=== PATIENT | female | born 1955 | race African-American/Black ===

== ENCOUNTER 2022-02-17 18:42 | Inpatient (IN) | payer OTHER ==
--- NOTE | 2022-02-17 14:32 | R.PREADM ---
PRE-ADMISSION SCREENING FORM SCREENING DATE AND TIME 02/17/2022 09:02 (CDT) ANTICIPATED REHAB ADMISSION DATE 02/17/2022 REFERRING FACILITY [facility] REFERRAL DATE AND TIME 02/14/2022 15:02 (CDT) REFERRAL ROOM# 222 ACUTE ADMIT DATE 02/13/2022 Previous Rehabilitation(s): No. 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 CLINICAL LIAISON Pau Osei PHYSICIAN REVIEWER Dr. Rell Hernandez M.D. MR# [id number] NAME MILY COLLINS ADDRESS [address] [facility] [address] DATE OF 1955 AGE 67 SSN# [id number] GENDER female MARITAL STATUS Single (Never ) PREF. LANGUAGE (IF NON-FRISIAN) Scottish ADMIT FROM 02 - [facility] PRE-HOSPITAL LIVING SETTING 01 - Home (private home/apt. board/care, assisted living, snf, transitional living) HOME TYPE AND DETAILS Type of home: single family house # of levels in the residence: 1 # of steps within the residence: 0 # of steps to enter the residence: 0 PRE-HOSPITAL LIVING WITH Family/Relatives FAMILY SUPPORT Yes PRIMARY FAMILY CONTACT NAME [place] PRIMARY FAMILY CONTACT PHONE PRIMARY FAMILY CONTACT RELATIONSHIP Brother PHONE PRIMARY FAMILY CONTACT ON ADM.? no IS PRIMARY FAMILY CONTACT AUTH. REP.? no 1ST EMERGENCY CONTACT [place] 1ST CONTACT PHONE 1ST CONTACT RELATIONSHIP Brother PHONE 1ST CONTACT ON ADM. no IS 1ST CONTACT AUTH. REP.? no PHONE 2ND CONTACT ON ADM.? no PATIENT EMPLOYMENT STATUS Retired (for age) PATIENT EMPLOYER No Employer PAYOR INFORMATION: 1ST PAYOR NAME [employer] [facility] [place] 1ST PAYOR PHONE [phone] 1ST PAYOR INJURY/ILLNESS DUE TO ACCIDENT? No ANOTHER REPUBLICAN RESPONSIBLE? No PRIMARY REHAB/ACUTE DIAGNOSIS: CVA ONSET DATE 02/13/2022 REHAB IMPAIRMENT CATEGORY (TRICIA): 01 Stroke (STR) MEETS 60% rule AFFECTED EXTREMITIES: RLE, and RUE PRIMARY DIAGNOSIS-RELATED SURGERIES: N/A INTERVENTIONS: - Diabetes Monitor blood glucose levels and administer medication as indicated by Physician Diet will be customized to manage diabetic needs. - HYPERTENSION Blood pressure will be regularly assessed and medications administered as per physician recommendatio ns. - CVA Monitor Neuro Signs regularly Provide aggressive OT, PT, and Speech services if warranted to address functional deficits RISK FOR COMPLICATIONS: - CVA pt's blood pressures have been inconsistent and require monitoring and medication management as inidi cated by physician. pt has history of CVA. Will monitor blood pressure and manage with medication. - Diabetic Complications Regular monitoring and management of blood glucose levels. pt will receive a specialized diet to help manage blood glucose levels - Skin Breakdown Nursing will assess skin daily using assessment tool and will place on Skin Breakdown Precautions as Indicated per protocol - Weakness Regular therapeutic activity and exercise Strengthening exercises to be performed - Falls Educated pt on fall prevention strategies to reduce/eliminate fall risk Patient will be evaluated for Fall Precautions and will be placed on Fall Precautions as indicated pe r protocol. - DVT Administer anti-coagulants as indicated by physician and monitor for effectiveness. Mobility training and regular exercise SUMMARY OF ACUTE HOSPITALIZATION: Pt. is a 67 yo Right-handed female. On 02/13/2022 Pt. presented to [facility] with sudden onset of right-side weakness. On 02/13/2022 she was admitted to [facility] with diagnosis CVA. Her impairment category is Stroke 01 - Right Body (Left Brain) (01.2). Pre-morbidly, Pt. was independent/mod-I in Locomotion, Safety Awareness, Social Cognition, Balance, a nd Transfers Control; and she had good Sphincter Control, Communication, Self-Care, and Endurance. Currently, she has deficits of Locomotion, Safety Awareness, Social Cognition, Balance, Transfers Con trol, Self-Care, Sphincter Control, Endurance, and Communication. Pt. is now referred to [facility] for acute in-patient rehabilitation in order to maximize patient's functional independence in activities of daily living, strength, ROM, and mobi lity. Patient has realistic goal of being discharged at assistance level 7-Ind to reside at Home with Fami ly/Relatives. PAST MEDICAL HISTORY BREAST CANCER DIABETES MELLITUS HYPERTENSION PAST SURGICAL HISTORY: CHOLECSTECTOMY HYSTERECTOMY LUMPECTOMY (OTHER) MEDICATION ALLERGIES: No Known Drug Allergies (NKDA) ENVIRONMENTAL ALLERGIES: - Substance Allergies None Known - Other Allergies None Known CODE STATUS: Full code WEIGHT/HEIGHT/BMI: WEIGHT 235 lbs HEIGHT 6' 2" BMI 30.2 DIET: - Diet Type Regular - Diet - Solid Texture Regular - Diet - Liquid Texture Regular - Tube Feed N/A SKIN DIAGRAM: on Head; extent - small; stage - NS(Not Stageable). Treatment - . REVIEW OF SYSTEMS: - Gen Alert and awake Lying in bed No apparent distress Oriented to: person, time, and place - Vital Signs Temperature: 98.4 F SBP/DBP: 146/78 Pulse: 63 Resp: 19 Vital signs stable, afebrile - CVS RRR VITAL SIGNS Temperature: 98.4 F SBP/DBP: 146/78 Pulse: 63 Resp: 19 Vital signs stable, afebrile MEDICATIONS/TREATMENT: Other- See attached MAR (Medication Administration Record). CURRENT SPHINCTER CONTROL: Pre-hospital bladder status: unspecified # of bladder accidents in the last 7 days prior to screenin Pre-hospital bowel status: unspecified # of bowel accidents in the last 7 days prior to screenin Last Bowel Movement Date: 02/14/2022 CURRENT LOCOMOTION STATUS: distance walked 20 feet WITH ROLLING WALKER DETAILED CURRENT FUNCTIONAL STATUS: - Bladder accident frequency: 7-Ind - No accidents in the past 7 days - Bowel accident frequency: 7-Ind - No accidents in the past 7 days - Walking score based on distance walked: 0(N/A) score based on distance walked: 1(<=50ft) - Wheelchair score based on distance traveled: 0(N/A) QI SCORES: - Self-Care A. Eating 03-Partial/moderate assistance B. Oral hygiene 03-Partial/moderate assistance C. Toileting hygiene 02-Substantial/maximal assistance E. Shower/bathe self 02-Substantial/maximal assistance F. Upper body dressing 03-Partial/moderate assistance G. Lower body dressing 02-Substantial/maximal assistance H. Putting on/taking off footwear 88-Not attempted due to medical condition or safety concerns - Mobility A. Roll left and right 04-Supervision or touching assistance B. Sit to lying 04-Supervision or touching assistance C. Lying to sitting on side of bed 04-Supervision or touching assistance D. Sit to stand 03-Partial/moderate assistance E. Chair/nec-fa-qefpo transfer 03-Partial/moderate assistance F. Toilet transfer 03-Partial/moderate assistance G. Car transfer 88-Not attempted due to medical condition or safety concerns I. Walk 10 feet 03-Partial/moderate assistance J. Walk 50 feet with two turns 88-Not attempted due to medical condition or safety concerns K. Walk 150 feet 88-Not attempted due to medical condition or safety concerns L. Walking 10 feet on uneven surfaces 88-Not attempted due to medical condition or safety concerns M. 1 step (curb) 88-Not attempted due to medical condition or safety concerns N. 4 steps 88-Not attempted due to medical condition or safety concerns O. 12 steps 88-Not attempted due to medical condition or safety concerns P. Picking up object 88-Not attempted due to medical condition or safety concerns R. Wheel 50 feet with two turns 88-Not attempted due to medical condition or safety concerns S. Wheel 150 feet 88-Not attempted due to medical condition or safety concerns - Bladder and Bowel Bladder continence Bowel continence - Endurance Fair - Balance Fair - Safety Awareness Fair CURRENT FUNC. DEFICITS: Self-Care, Mobility, Endurance, Balance, and Safety Awareness CURRENT / PREVIOUS ASSISTIVE DEVICES: Rolling Walker HISTORY OF FALLS. HAS THE PATIENT HAD TWO OR MORE FALLS IN THE PAST YEAR OR ANY FALL WITH INJURY IN T HE PAST YEAR?: No PRIOR SURGERY. DID THE PATIENT HAVE MAJOR SURGERY DURING THE 100 DAYS PRIOR TO ADMISSION?: No THERAPY NOTES FROM ACUTE CARE: Attached. SPECIAL NEEDS: - Safety Concerns Fall precautions needed due to Poor balance Skin breakdown precautions needed due to skin breakdown risk PRECAUTIONS: - Weight Bearing Precaution WBAT right LE - Fall Precaution Bed alarm TABS alarm Wheel chair alarm PATIENT NEEDS ACTIVE AND ONGOING THERAPEUTIC INTERVENTION OF MULTIPLE THERAPY DISCIPLINES, INCLUDING: - Dietary and Nutrition Adequate Nutrition. Nutritional Education. Nutritional Supplements. Evaluate and Treat. - Occupational Therapy Cognitive Retraining. Patient needs Occupational Therapy for a daily minimum of 1.5 hours at least 5 out of 7 days, to improve Activities of Daily Living, including: Eating, Grooming, Bathing, Dressing, Toileting, Toilet Transfers, Community Reintegration, Higher functional activities, Adaptive Equipme nt, Splinting, Household Tasks, and Other activities as determined. Visual Perceptual Training. Evalu ate and Treat. - Speech Therapy Cognitive Training. Expressive Language Skills. Memory Strategies. Patient needs Speech Therapy for a daily minimum of 1.5 hours at least 5 out of 7 days, to improve: Swallowing, Cognition, Language Ski lls, and Compensatory Strategies. Receptive Language Skills. Speech Intelligibility Training. Evaluat e and Treat. - Physical Therapy Patient needs Physical Therapy for a daily minimum of 1.5 hours at least 5 out of 7 days, to improve: Mobility, Strengthening, Transfers, Stretching, ROM, Endurance, Ability to manage stairs, Gait, and Balance. Balance Training. Evaluate and Treat. Mobility Training. Patient/Family Education. Safety Aw areness. Transfer Training. Modalities Training. Gait Training. PATIENT NEEDS CLOSE MEDICAL SUPERVISION BY A REHABILITATION PHYSICIAN FOR: Coordination of Treatment Team Wound Care PATIENT REQUIRES 24X7 REHAB NURSING FOR MEDICAL AND FUNCTIONAL MGT. OF THE FOLLOWING DEFICITS: Disease Management Medication Management Patient requires 24x7 Rehabilitation Nursing for: Pain Issues, Identifying and preventing risk factor s, Monitoring and reporting current medical conditions, Assisting with ambulation and transfer, Ruba ting with all ADL-s, Teaching patients about disease process and medications, Family teaching, Provid ing safe environment, Bowel and Bladder Issues, Skin Integrity, and Medication Management Patient/Family Education Providing Safe Environment Skin Integrity PATIENT REQUIRES INTENSIVE, COORDINATED INTERDISCIPLINARY APPROACH TO REHAB: Arranging Home Equipment/Services Discharge Planning Family Intervention/Training Patient needs Dietary and Nutrition Services for: Adequate Nutrition, Nutritional Supplements, and Nu tritional Education Patient needs Wrong Address Clerk and/or Case Management for: Discharge Planning, Arranging Home Equipmen t or Services, and Family Interventions Wrong Address Clerk/Case Management PATIENT REHAB POTENTIAL: Zack COLLINS is able and expected to receive 3 hours of individualized therapy daily on at least 5 of robinson ry 7 days Zack BARNETTs prognosis for significant practical improvement within a reasonable period of time appears Good Expected level of measurable improvement will be of a practical value to Zack COLLINS's functional capaci ty or adaptations to impairments Has a viable Discharge Plan Medically appropriate; condition is sufficiently stable to participate in intensive rehab program DISCHARGE PLAN: - Estimated Length of Stay (days) 17. - Consensus on plan Discharge plan has been discussed with primary caregiver. Patient/Family is in agreement with the sage n. Primary caregiver is in agreement with the plan. - Patient/Family Goals Return home independently. - Planned Living Setting Upon Discharge Home, to live with Family/Relatives. Transitional Living. RECOMMENDED CARE LEVEL: IRF RECOMMENDATION DETAILS: Recommended Admission to Comprehensive Rehabilitation Program to Increase Functional [place] SCREENER'S COMPLETENESS CONFIRMATION: - Screening Confirmation The patient data collection on this preadmission screening form is finished PHYSICIANS REVIEW AND ADMISSION DETERMINATION Admit - Based on my review of the Pre-Admission Screening results, in my medical judgment and experie nce, I concur with the findings and recommend admission to [facility], as this patient requires an IRF level of care. SIGNATURE PANEL: Process Safety Specialist - [electronically] signed by Pau Osei on 02/17/2022 at 10:46 (CDT) Process Safety Specialist - [electronically] signed by Tony Gutiérrez PT on 02/17/2022 at 12:00 (CDT) Physician Reviewer - [electronically] signed by Dr. Rell Hernandez M.D. on 02/17/2022 at 14:31 (CDT )
--- OUTSIDE RECORDS SUMMARY | 2022-02-17 18:46 | XMS REPORT | Continuity of Care Document ---
:1955 Author Organization [facility] t Address [address] [place] [address] Care Team Providers Name Role Phone Unavailable Unavailable Unavailable Problems This patient has no known problems. Allergies, Adverse Reactions, Alerts This patient has no known allergies or adverse reactions. Medications This patient has no known medications. Procedures This patient has no known procedures. Results Test Description Test Time Test Comments Results Result [facility] e Comments DIAG MAMM 2019-09-30 - DIAG MAMM BILATERAL BILATERAL FELIPE 10:18:19 FELIPE CAD CAD DIGITAL DIGITALBILATERAL DIGITAL DIAGNOSTIC MAMMOGRAM 3D/2D WITH CAD: 09/30/2019CLINICAL: History of breast cancer left breast. Digital breast tomosynthesis was performed in addition to routine CC and MLO views. Current mammographic images were evaluated by either a femeninas M-Vu or an iCAD version 7.2 computer aided detection system. Comparison is made to exams dated 08/10/2017 mammogram - [facility], [facility], and 06/25/2015 mammogram - [facility]. There are scattered fibroglandular tissues in both breasts. The right breast appears larger. There are post operative findings in both breasts.There are stable benign-appearing asymmetries in the right breast. There also are benign calcifications and a stable benign-appearing asymmetry in the left breast. No suspicious new mass, new focus of architectural distortion, malignant type calcification, or lymph node abnormality detected. Breast architecture is stable compared to prior exams.IMPRESSION: BENIGNThere is no mammographic evidence of malignancy. Resume annual screening mammography in one year. Kaushik Freedman M.D. rb/:09/30/2019 10:18:19 Entry: cl - 09/30/2019 10:18:19Imaging Technologist: Bhargav CALIX, [facility]-RGletter sent: BIRADS 1-2 Normal Mammogram BI-RADS: 2 Benign MM, DIGITAL, 2017-08-10 Reason for #[id number] MAMMO, SCREENING, 15:15:00 Exam:->Researc - MM, DIGITAL, MAMMO, BILATERAL h exam SCREENING, BILATERAL INCLUDING CAD INCLUDING CADBILATERAL DIGITAL SCREENING MAMMOGRAM WITH CAD: 08/10/2017Comparison is made to exam dated: 08/20/2016 mammogram. There are scattered fibroglandular elements in both breasts that could obscure a lesion on mammography. Current study was also evaluated with a Computer Aided Detection (CAD) system. There are multiple, similar benign appearing masses in both breasts which are stable. Benign appearing calcifications are present in both breasts. There is a post-surgical scar associated with the left breast. No significant other findings are seen in either breast. IMPRESSION: BENIGNClinical management of any area of clinical concern is recommended. There is no mammographic evidence of malignancy. A 1 year screening mammogram is recommended. Jessica Maloney M.D. pth/:08/10/2017 15:15:33 Normal Exam Mammogram BI-RADS: 2 Benign [id number] , CHEST, 2 2017-08-10 Reason for FINAL REPORT PATIENT VIEWS 14:04:00 Exam:->[facility] ID: [id number] h exam TECHNIQUE: Frontal and lateral views of the chest. INDICATION: 62-year-old woman for research exam. COMPARISON: None. FINDINGS: LINES/TUBES: None. LUNGS: The lungs are well inflated and clear. PLEURA: No pleural effusion or pneumothorax. HEART AND MEDIASTINUM: The cardiomediastinal silhouette is within normal limits. Mildly tortuous/ectatic thoracic aorta. SOFT TISSUES AND BONES: Degenerative changes of the visualized spine. Multiple clips in the left axilla. IMPRESSION:No acute cardiopulmonary abnormalities. Signed: Adan Beck MDReport Verified Date/Time: 08/10/2017 14:04:04 Reading Location: [address] Radiology Reading Room
[2022-02-17] MEDS ORDERED: SEMAGLUTIDE SQ SCH (19:30)
[2022-02-17] MEDS ORDERED: D50W 25 GM/50 ML SYRINGE IV PRN (19:31)
[2022-02-17] MEDS ORDERED: GLUCAGON 1 MG/VIAL IM PRN (19:31)
[2022-02-17] MEDS ORDERED: MAGNES/ALUMIN/SIMET 30ML UCUP PO PRN (19:33)
[2022-02-17] MEDS ORDERED: MAGNESIUM HYDROXIDE 8% 30 ML PO PRN (19:34)
[2022-02-17] MEDS ORDERED: ACETAMINOPHEN 325 MG TABLET PO PRN (19:34)
[2022-02-17 19:41] LABS: Urine Appearance Clear (Clear); Urine Bilirubin Negative (Negative); Urine Blood Negative (Negative); Urine Color Yellow (Yellow); Urine Glucose 2+ (Negative); Urine Protein Negative (Negative); Urine Urobilinogen 0.2 mg/dL (0.2-1.0)
[2022-02-17 19:48] LABS: Urine Microscopic Reflex NO UMIC
[2022-02-17] MEDS: INSULIN -REGULAR HUMAN 50 UNIT/0.5 ML ML SQ SCH (20:31)
[2022-02-17] MEDS: ATORVASTATIN 80 MG TAB PO SCH (20:50)
[2022-02-18 04:56] LABS: Absolute Lymphocytes (CBC) 3.2 K/uL (0.7-4.9); Hematocrit 37.2 % (36.0-45.0); Lymphocytes % 31.4 % (15.3-44.8); MPV 7.5 fL (7.6-11.3); RBC Red Blood Cell Count 4.42 M/uL (3.86-4.86)
[2022-02-18 05:16] LABS: Albumin 3.2 g/dL (3.4-5.0); Magnesium 2.1 mg/dL (1.8-2.4); Potassium 3.5 mmol/L (3.5-5.1); Prealbumin 26.6 mg/dL (20-40)
[2022-02-18] MEDS ORDERED: D10W 125 ML IV PRN (07:15)
[2022-02-18] MEDS: INSULIN -REGULAR HUMAN 50 UNIT/0.5 ML ML SQ SCH ×4 (07:30→20:01)
[2022-02-18] MEDS: BISOPROLOL/HCTZ 5/6.25MG TAB PO SCH (07:58)
[2022-02-18] MEDS: ENOXAPARIN 40 MG/0.4 ML SQ SCH (07:58)
[2022-02-18] MEDS: BISOPROLOL 5 MG TABLET PO SCH (07:59)
[2022-02-18] MEDS ORDERED: ATORVASTATIN 80 MG TAB PO SCH (08:00)
[2022-02-18] MEDS: AMLODIPINE 5 MG TAB PO SCH ×2 (08:00→09:43)
[2022-02-18] MEDS: glipiZIDE 5 MG TAB PO SCH ×2 (08:00→16:53)
[2022-02-18] MEDS: VALSARTAN 80 MG TAB PO SCH ×2 (08:00→09:42)
[2022-02-18] MEDS ORDERED: BISOPROLOL PO SCH (08:00)
[2022-02-18] MEDS ORDERED: HCTZ PO SCH (08:00)
[2022-02-18] MEDS ORDERED: hydroCHLOROthiazide 12.5 MG CAP PO SCH (08:00)
[2022-02-18] MEDS: ASPIRIN 325 MG TAB PO SCH (08:00)
[2022-02-18] MEDS ORDERED: AMLODIPINE 5 MG TAB PO SCH (08:00)
[2022-02-18] MEDS ORDERED: VALSARTAN 80 MG TAB PO SCH (08:00)
[2022-02-18] MEDS: CLOPIDOGREL 75 MG TABLET PO SCH (08:00)
[2022-02-18] MEDS ORDERED: BISOPROLOL 5 MG TABLET PO SCH (08:00)
[2022-02-18] MEDS: TRESIBA SQ SCH (08:00)
[2022-02-18] MEDS ORDERED: MELATONIN 3 MG TABLET PO PRN (17:41)
--- NOTE | 2022-02-18 17:42 | R.HP ---
HISTORY AND PHYSICAL FACILITY: [facility] ENCOUNTER DATE AND TIME: 02/18/2022 12:42 (CDT) MR#: [id number] NAME MILY SAGASTUME ADDRESS: [address] [facility] [facility] CITY: [place] [address] [address] PHONE: DATE OF : 1955 AGE: 67 SSN# [id number] GENDER: Female MARITAL STATUS Single (Never ) PRE-HOSPITAL LIVING SETTING 01 - Home (private home/apt. board/care, assisted living, half-way, transitional living) PRE-HOSPITAL LIVING WITH Family/Relatives ENCOUNTER PHYSICIAN: Dr. Rell Hernandez M.D. REFERRING DOCTOR: DATE OF ADMISSION: 02/17/2022 18:42 (CDT) REFERRING FACILITY [facility] HOME TYPE AND DETAILS: Type of home: single family house # of levels in the residence: 1 # of steps within the residence: 0 # of steps to enter the residence: 0 ONSET DATE: 02/13/2022 PRIMARY DIAGNOSIS-RELATED SURGERIES: N/A HISTORY OF PRESENT ILLNESS (HPI): Pt. is a 67 yo Right-handed female. On 02/13/2022 Pt. presented to [facility] with sudden onset of right-side weakness. On 02/13/2022 she was admitted to [facility] with diagnosis CVA. Her impairment category is Stroke 01 - Right Body (Left Brain) (01.2). Pre-morbidly, Pt. was independent/mod-I in Locomotion, Safety Awareness, Social Cognition, Balance, a nd Transfers Control; and she had good Sphincter Control, Communication, Self-Care, and Endurance. Currently, she has deficits of Locomotion, Safety Awareness, Social Cognition, Balance, Transfers Con trol, Self-Care, Sphincter Control, Endurance, and Communication. Pt. is now referred to [facility] for acute in-patient rehabilitation in order to maximize patient's functional independence in activities of daily living, strength, ROM, and mobi lity. Patient has realistic goal of being discharged at assistance level 7-Ind to reside at Home with Fami ly/Relatives. MEDICATION ALLERGIES: No Known Drug Allergies (NKDA) ENVIRONMENTAL ALLERGIES: - Substance Allergies None Known - Other Allergies None Known PAST MEDICAL HISTORY: BREAST CANCER DIABETES MELLITUS HYPERTENSION PAST SURGICAL HISTORY: CHOLECSTECTOMY HYSTERECTOMY LUMPECTOMY (OTHER) SOCIAL HISTORY: - Home Living Family/Relatives REVIEW OF SYSTEMS: - Gen No Chills Fatigue No Fever - Eyes No Double Vision No itchiness - ENMT Difficulty Swallowing - CVS No Chest Discomfort No Chest Pain No Fatigue No Weight Gain - Resp No Cough No Shortness of Breath - GI Continent No Abdominal Pain No Constipation No Diarrhea - Continent No Kidney Pain No Painful Urination No Urinary Urgency - MSK No Joint Pain Muscle Cramps Stiffness - Skin No Itching No Rash No Suspicious Lesions - Neuro No Coordination Difficulty No Difficulty with Concentration No Memory Loss No Seizures Weakness - Psych No Anxiety No Depression No HIV Exposure No Persistent Infections No Seasonal Allergies - Endo No Cold/Heat Intolerance No Excessive Hunger No Excessive Thirst No Excessive Urination PHYSICAL EXAM - Gen Alert and awake Lying in bed No apparent distress Oriented to: person, time, and place - Skin No skin breakdown. No abnormalities - Eyes No abnormalities - ENMT No abnormalities - Neck No abnormalities - CVS RRR - Chest No abnormalities - Resp No wheezing - Abd Soft - GI Non distended Deferred - No abnormalities - Ext No significant edema - MSK 4+/5 weakness in left upper and lower extremity - Neuro 4/5 strength right upper and lower extremities. - Psych Mild depression and anxiety. VITAL SIGNS Temperature: 97.6 F SBP/DBP: 121/59 Pulse: 64 Resp: 15 NURSING: - Shower allowing shower - Bladder care per protocol - Skin care per protocol PRECAUTIONS: - Weight Bearing Precaution WBAT right LE - Fall Precaution Bed alarm TABS alarm Wheel chair alarm ACTIVITIES OOB only with supervision QI SCORES: - Self-Care A. Eating 03-Partial/moderate assistance B. Oral hygiene 03-Partial/moderate assistance C. Toileting hygiene 02-Substantial/maximal assistance E. Shower/bathe self 02-Substantial/maximal assistance F. Upper body dressing 03-Partial/moderate assistance G. Lower body dressing 02-Substantial/maximal assistance H. Putting on/taking off footwear 88-Not attempted due to medical condition or safety concerns - Mobility A. Roll left and right 04-Supervision or touching assistance B. Sit to lying 04-Supervision or touching assistance C. Lying to sitting on side of bed 04-Supervision or touching assistance D. Sit to stand 03-Partial/moderate assistance E. Chair/tvx-ka-[id number] transfer 03-Partial/moderate assistance F. Toilet transfer 03-Partial/moderate assistance G. Car transfer 88-Not attempted due to medical condition or safety concerns I. Walk 10 feet 03-Partial/moderate assistance J. Walk 50 feet with two turns 88-Not attempted due to medical condition or safety concerns K. Walk 150 feet 88-Not attempted due to medical condition or safety concerns L. Walking 10 feet on uneven surfaces 88-Not attempted due to medical condition or safety concerns M. 1 step (curb) 88-Not attempted due to medical condition or safety concerns N. 4 steps 88-Not attempted due to medical condition or safety concerns O. 12 steps 88-Not attempted due to medical condition or safety concerns P. Picking up object 88-Not attempted due to medical condition or safety concerns R. Wheel 50 feet with two turns 88-Not attempted due to medical condition or safety concerns S. Wheel 150 feet 88-Not attempted due to medical condition or safety concerns - Bladder and Bowel Bladder continence Bowel continence - Endurance Fair - Balance Fair - Safety Awareness Fair CURRENT FUNC. DEFICITS: Self-Care, Mobility, Endurance, Balance, and Safety Awareness MEDICATIONS: - Other See attached MAR (Medication Administration Record) ASSESSMENT: Pt. is a 67 yo Right-handed female.On 02/13/2022 Pt. presented to [facility] with sudden onse t of right-side weakness.On 02/13/2022 she was admitted to [facility] with diagnosis CVA.Her impairment category is Stroke 01 - Right Body (Left Brain) (01.2).Pre-morbidly, Pt. was independent/ mod-I in Locomotion, Safety Awareness, Social Cognition, Balance, and Transfers Control; and she had good Sphincter Control, Communication, Self-Care, and Endurance.Currently, she has deficits of Locomo tion, Safety Awareness, Social Cognition, Balance, Transfers Control, Self-Care, Sphincter Control, E ndurance, and Communication.Pt. is now referred to [facility] for acute in-pat ient rehabilitation in order to maximize patient's functional independence in activities of daily zach ing, strength, ROM, and mobility.- Rehab Goal Patient has realistic goal of being discharged at assistance level 7-Ind to reside at Home with Fami ly/Relatives. for Dementia, TBI, Stroke, or others - Physical Therapy Gait dysfunction - to improve, our physical therapists will perform initial evaluation of pt's status upon admission and devise an individualized program for Gait Training, and Wheel Chair mobility Inability to transfer - to improve, our physical therapists will perform initial evaluation of pt's s tatus upon admission and devise an individualized program for Bed mobility Need for home safety evaluation - to improve, our physical therapists will perform initial evaluation of pt's status upon admission and devise an individualized program for Home Evaluation Need in caregiver upon discharge - to improve, our physical therapists will perform initial evaluatio n of pt's status upon admission and devise an individualized program for Caregiver Training New precaution - to improve, our physical therapists will perform initial evaluation of pt's status u ronel admission and devise an individualized program for Patient precaution education Edema - to improve, our physical therapists will perform initial evaluation of pt's status upon admi ssion and devise an individualized program for Elevation Training, and Lymphedema Therapy Poor balance - to improve, our physical therapists will perform initial evaluation of pt's status upo n admission and devise an individualized program for Balance Training Poor endurance - to improve, our physical therapists will perform initial evaluation of pt's status u ronel admission and devise an individualized program for Endurance Training Weakness - to improve, our physical therapists will perform initial evaluation of pt's status upon ad mission and devise an individualized program for Aquatic Therapy, Neuromuscular Reeducation, and Stre ngthening Achieving independence - to improve, our physical therapists will perform initial evaluation of pt's status upon admission and devise an individualized program for Community Reintegration Activities - Occupational Therapy ADL deficits - to improve, our occupation therapists will perform initial evaluation of pt's status u ronel admission and devise an individualized program for Bathing, Bed mobility, Community Reintegration , Cooking, Dressing, Eating, Fine Motor Skills, Grooming, Homemaking, Kitchen Mobility, Laundry, Akua ent Education, Safety Awareness, Splinting - Positioning, Transfers(Toilet, Tub, Shower), and Wheel C hair Management Cognitive deficits - to improve, our occupation therapists will perform initial evaluation of pt's st atus upon admission and devise an individualized program for Cognition - orientation Need for respiratory care assistant - to improve, our occupation therapists will perform initial evaluation of pt's s tatus upon admission and devise an individualized program for Caregiver Training Weakness - to improve, our occupation therapists will perform initial evaluation of pt's status upon admission and devise an individualized program for Aquatic Therapy, Balance, Endurance, UE ROM, and U E strengthening MEDICAL PLAN: - Diet Type Start Regular - Diet - Liquid Texture Start Regular - Tube Feed Start N/A - Bladder care per protocol - Weight Bearing Precaution WBAT right LE - Fall Precaution Bed alarm TABS alarm Wheel chair alarm - Skin care per protocol - Other See attached MAR (Medication Administration Record) - Diet - Solid Texture Regular - Shower shower DISCHARGE PLAN: - Estimated Length of Stay (days) 17. - Consensus on plan Discharge plan has been discussed with primary caregiver. Patient/Family is in agreement with the sage n. Primary caregiver is in agreement with the plan. - Patient/Family Goals Return home independently. - Planned Living Setting Upon Discharge Home, to live with Family/Relatives. Transitional Living. SIGNATURE PANEL: (CDT)
--- NOTE | 2022-02-18 17:45 | PAPE ---
POST ADMISSION PHYSICIAN EVALUATION PATIENT: [facility] MR# [id number] REFERRING DOCTOR EVALUATION DATE AND TIME 02/18/2022 17:43 (CDT) NAME MILY SAGASTUME DATE OF 1955 AGE 67 PHONE N# [id number] GENDER female EVALUATING PHYSICIAN Dr. Rell Hernandez M.D. ADMISSION DIAGNOSIS: CVA ONSET DATE 02/13/2022 POST-ADMISSION FUNCTIONAL/MEDICAL STATUS: - Bladder Same accident frequency: 7-Ind - No accidents in the past 7 days - Bowel Same accident frequency: 7-Ind - No accidents in the past 7 days - Walking Same score based on distance walked: 0(N/A) Same score based on distance walked: 1(<=50ft) - Wheelchair Same score based on distance traveled: 0(N/A) STATUS CHANGE EVALUATION: No change in Functional or Medical Status is identified compared with Pre-Admission screening. PATIENT NEEDS CLOSE MEDICAL SUPERVISION BY A REHABILITATION PHYSICIAN FOR: Coordination of Treatment Team Wound Care PATIENT REQUIRES 24X7 REHAB NURSING FOR MEDICAL AND FUNCTIONAL MGT. OF THE FOLLOWING DEFICITS: Disease Management Medication Management Patient requires 24x7 Rehabilitation Nursing for: Pain Issues, Identifying and preventing risk factor s, Monitoring and reporting current medical conditions, Assisting with ambulation and transfer, Ruba ting with all ADL-s, Teaching patients about disease process and medications, Family teaching, Provid ing safe environment, Bowel and Bladder Issues, Skin Integrity, and Medication Management Patient/Family Education Providing Safe Environment Skin Integrity PATIENT REQUIRES INTENSIVE, COORDINATED INTERDISCIPLINARY APPROACH TO REHAB: Arranging Home Equipment/Services Discharge Planning Family Intervention/Training Patient needs Dietary and Nutrition Services for: Adequate Nutrition, Nutritional Supplements, and Nu tritional Education Patient needs Channel Cementer Insole Machine and/or Case Management for: Discharge Planning, Arranging Home Equipmen t or Services, and Family Interventions Channel Cementer Insole Machine/Case Management LIST OF IDENTIFIED AND POTENTIAL PROBLEMS: Alteration in leisure activities Bladder, Incontinence Bowel, Incontinence Falls, Actual or Potential Infection, Actual or Potential Mobility Impaired Pain, Alteration in Comfort Self Care Deficit Skin Integrity, Actual or Potential Urinary Tract Infection (UTI), Actual or Potential RISK FOR COMPLICATIONS - CVA pt's blood pressures have been inconsistent and require monitoring and medication management as inidi cated by physician. pt has history of CVA. Will monitor blood pressure and manage with medication. - Diabetic Complications Regular monitoring and management of blood glucose levels. pt will receive a specialized diet to help manage blood glucose levels. - Skin Breakdown Nursing will assess skin daily using assessment tool and will place on Skin Breakdown Precautions as Indicated per protocol. - Weakness Regular therapeutic activity and exercise. Strengthening exercises to be performed. - Falls Educated pt on fall prevention strategies to reduce/eliminate fall risk. Patient will be evaluated fo r Fall Precautions and will be placed on Fall Precautions as indicated per protocol. - DVT Administer anti-coagulants as indicated by physician and monitor for effectiveness. Mobility training and regular exercise. INTERVENTIONS - Diabetes Monitor blood glucose levels and administer medication as indicated by Physician. Diet will be custom ized to manage diabetic needs. - HYPERTENSION Blood pressure will be regularly assessed and medications administered as per physician recommendatio ns. - CVA Monitor Neuro Signs regularly. Provide aggressive OT, PT, and Speech services if warranted to address functional deficits. PATIENT COULD BE AT RISK FOR COMPLICATIONS FROM ADVERSE MEDICAL CONDITIONS DUE TO HIS/HER COMORBIDITI ES AND THE RIGORS OF THE INTENSIVE REHABILLITATION PROGRAM. METHODS OR INTERVENTIONS TO AVOID COMPLIC ATIONS INCLUDE: - Bleeding Assess lab values and manage abnormalities. Nursing to teach precautions for anti-coagulation therapy . Stroke patients assessed for lethargy or change in status. Wound to be assessed every shift. - Infection Clinical staff to assess and manage the signs and symptoms of infection including fever, redness, war mth, etc. - Urinary Tract Infection - Aspiration Clinical staff will assess and manage coughing, drooling, congestion. - Falls Patient will be evaluated for Fall Precautions and will be placed on Fall Precautions as indicated pe r protocol. - Skin Breakdown Nursing will assess skin daily using assessment tool and will place on Skin Breakdown Precautions as indicated per protocol. - Pain Clinical staff may employ non-medication methods such as massage, distraction, decrease stimulus, etc . as needed. Clinical staff will assess patient's pain level every shift per protocol to assess and e nsure pain management effectiveness. Medications will be given and the pain level re-assessed. PRELIMINARY PLAN OF CARE: - Physical Therapy Patient needs Physical Therapy for a daily minimum of 1.5 hours at least 5 out of 7 days, to improve: Mobility, Strengthening, Transfers, Stretching, ROM, Endurance, Ability to manage stairs, Gait, and Balance. - Speech Therapy Patient needs Speech Therapy for a daily minimum of 0.5 hours at least 5 out of 7 days, to improve: S wallowing, Cognition, Language Skills, and Compensatory Strategies. - Rehabilitation Nursing Patient requires 24x7 Rehabilitation Nursing for: Pain Issues, Identifying and preventing risk factor s, Monitoring and reporting current medical conditions, Assisting with ambulation and transfer, Ruba ting with all ADL-s, Teaching patients about disease process and medications, Family teaching, Provid ing safe environment, Bowel and Bladder Issues, Skin Integrity, and Medication Management. Patient needs Channel Cementer Insole Machine and/or Case Management for: Discharge Planning, Arranging Home Equipmen t or Services, and Family Interventions. - Dietary and Nutrition Services Patient needs Dietary and Nutrition Services for: Adequate Nutrition, Nutritional Supplements, and Nu tritional Education. - Occupational Therapy Patient needs Occupational Therapy for a daily minimum of 1.5 hours at least 5 out of 7 days, to impr ove Activities of Daily Living, including: Eating, Grooming, Bathing, Dressing, Toileting, Toilet Tra nsfers, Community Reintegration, Higher functional activities, Adaptive Equipment, Splinting, Househo ld Tasks, and Other activities as determined. QI SCORES: - Self-Care A. Eating 03-Partial/moderate assistance B. Oral hygiene 03-Partial/moderate assistance C. Toileting hygiene 02-Substantial/maximal assistance E. Shower/bathe self 02-Substantial/maximal assistance F. Upper body dressing 03-Partial/moderate assistance G. Lower body dressing 02-Substantial/maximal assistance H. Putting on/taking off footwear 88-Not attempted due to medical condition or safety concerns - Mobility A. Roll left and right 04-Supervision or touching assistance B. Sit to lying 04-Supervision or touching assistance C. Lying to sitting on side of bed 04-Supervision or touching assistance D. Sit to stand 03-Partial/moderate assistance E. Chair/isc-cg-dhyow transfer 03-Partial/moderate assistance F. Toilet transfer 03-Partial/moderate assistance G. Car transfer 88-Not attempted due to medical condition or safety concerns I. Walk 10 feet 03-Partial/moderate assistance J. Walk 50 feet with two turns 88-Not attempted due to medical condition or safety concerns K. Walk 150 feet 88-Not attempted due to medical condition or safety concerns L. Walking 10 feet on uneven surfaces 88-Not attempted due to medical condition or safety concerns M. 1 step (curb) 88-Not attempted due to medical condition or safety concerns N. 4 steps 88-Not attempted due to medical condition or safety concerns O. 12 steps 88-Not attempted due to medical condition or safety concerns P. Picking up object 88-Not attempted due to medical condition or safety concerns R. Wheel 50 feet with two turns 88-Not attempted due to medical condition or safety concerns S. Wheel 150 feet 88-Not attempted due to medical condition or safety concerns - Bladder and Bowel Bladder continence Bowel continence - Endurance Fair - Balance Fair - Safety Awareness Fair POTENTIAL FUNCTIONAL GOALS FOR PATIENT TO ACHIEVE BY DISCHARGE: - Safety Precaution Patient will remain free from falls or injury at time of discharge. - Bed Mobility Patient will perform bed mobility at 4-Lorri level of assistance. - Transfers Patient will complete transfers from bed to chair at 4-Lorri level of assistance. - Mobility Patient will ambulate 150 ft with 4-Lorri level of assistance with RW. PATIENT REHAB POTENTIAL Zack SAGASTUME is able and expected to receive 3 hours of individualized therapy daily on at least 5 of robinson ry 7 days Zack SAGASTUME's prognosis for significant practical improvement within a reasonable period of time appears Good Expected level of measurable improvement will be of a practical value to Zack SAGASTUME's functional capaci ty or adaptations to impairments Has a viable Discharge Plan Medically appropriate; condition is sufficiently stable to participate in intensive rehab program DISCHARGE PLAN: - Estimated Length of Stay (days) 17. - Consensus on plan Discharge plan has been discussed with primary caregiver. Patient/Family is in agreement with the sage n. Primary caregiver is in agreement with the plan. - Patient/Family Goals Return home independently. - Planned Living Setting Upon Discharge Home, to live with Family/Relatives. Transitional Living. CONCLUSION ON REHABILITATION NECESSITY: I have evaluated patient's pre-admission functional status and, comparing it to the patient's post-ad mission functional status now, I conclude that the pre-admission assessment was accurate. Patient's c ondition on admission supports the medical necessity of admission to [facility]. It is safe to proceed with patient's therapy program. SIGNATURE PANEL: (CDT)
[2022-02-18] MEDS: ATORVASTATIN 80 MG TAB PO SCH (20:01)
[2022-02-18] MEDS: DOCUSATE NA/SENNA CONC 1 TAB PO PRN (20:01)
[2022-02-19] MEDS: ENOXAPARIN 40 MG/0.4 ML SQ SCH (06:56)
[2022-02-19] MEDS: BISOPROLOL 5 MG TABLET PO SCH (07:14)
[2022-02-19] MEDS: BISOPROLOL/HCTZ 5/6.25MG TAB PO SCH (07:14)
[2022-02-19] MEDS: ASPIRIN 325 MG TAB PO SCH (07:15)
[2022-02-19] MEDS: CLOPIDOGREL 75 MG TABLET PO SCH (07:15)
[2022-02-19] MEDS: glipiZIDE 5 MG TAB PO SCH ×3 (07:16→17:29)
[2022-02-19] MEDS: INSULIN -REGULAR HUMAN 50 UNIT/0.5 ML ML SQ SCH ×4 (07:30→20:39)
[2022-02-19] MEDS: TRESIBA SQ SCH (08:00)
[2022-02-19] MEDS: VALSARTAN 80 MG TAB PO SCH (12:12)
[2022-02-19] MEDS: AMLODIPINE 5 MG TAB PO SCH (12:13)
[2022-02-19] MEDS: TRAZODONE 50 MG TABLET PO PRN (18:47)
[2022-02-19] MEDS: ATORVASTATIN 80 MG TAB PO SCH (18:47)
[2022-02-19] MEDS ORDERED: GABAPENTIN 300 MG CAP PO SCH (21:00)
[2022-02-20 06:38] LABS: Absolute Lymphocytes (CBC) 2.7 K/uL (0.7-4.9); Hematocrit 38.5 % (36.0-45.0); Lymphocytes % 35.6 % (15.3-44.8); MPV 7.5 fL (7.6-11.3)
[2022-02-20 06:54] LABS: Albumin 3.1 g/dL (3.4-5.0); Magnesium 2.3 mg/dL (1.8-2.4); Potassium 3.5 mmol/L (3.5-5.1); Prealbumin 26.3 mg/dL (20-40)
[2022-02-20] MEDS: ENOXAPARIN 40 MG/0.4 ML SQ SCH (07:03)
[2022-02-20] MEDS: INSULIN -REGULAR HUMAN 50 UNIT/0.5 ML ML SQ SCH ×4 (07:30→20:23)
[2022-02-20] MEDS: TRESIBA SQ SCH (08:00)
[2022-02-20] MEDS: glipiZIDE 5 MG TAB PO SCH ×2 (08:40→17:04)
[2022-02-20] MEDS: ASPIRIN 325 MG TAB PO SCH (08:41)
[2022-02-20] MEDS: AMLODIPINE 5 MG TAB PO SCH (08:41)
[2022-02-20] MEDS: FERROUS SULFATE 325 MG TAB PO SCH (08:41)
[2022-02-20] MEDS: CLOPIDOGREL 75 MG TABLET PO SCH (08:42)
[2022-02-20] MEDS: BISOPROLOL 5 MG TABLET PO SCH (08:44)
--- NOTE | 2022-02-20 09:48 | P.RH.PN ---
Estimated Length of Stay: 11 Expected Discharge Date: 02/25/22 Discharge Disposition Plan: Home Family Support: Yes Senior Living Goal: Mobility, Transfers, Self Care Vital Signs: Last Vital Signs Temp 96.9 F 02/20/22 07:13 Pulse 58 02/20/22 08:44 Resp 16 02/20/22 07:13 BP 127/58 L 02/20/22 08:44 Pulse Ox 96 02/20/22 07:13 Laboratory: Laboratory Last Values WBC 7.6 K/uL (4.3-10.9) D 02/20/22 06:08 RBC 4.50 M/uL (3.86-4.86) 02/20/22 06:08 Hgb 12.8 g/dL (12.0-15.0) 02/20/22 06:08 Hct 38.5 % (36.0-45.0) 02/20/22 06:08 MCV 85.5 fL (80-100) 02/20/22 06:08 MCH 28.3 pg (27.0-35.0) 02/20/22 06:08 MCHC 33.1 g/dL (32.0-36.0) 02/20/22 06:08 RDW 14.7 % (12.1-15.2) 02/20/22 06:08 Plt Count 241 K/uL (152-406) 02/20/22 06:08 MPV 7.5 fL (7.6-11.3) L 02/20/22 06:08 Neutrophils % 48.6 % (41.7-73.7) 02/20/22 06:08 Lymphocytes % 35.6 % (15.3-44.8) 02/20/22 06:08 Monocytes % 8.5 % (3.3-12.3) 02/20/22 06:08 Eosinophils % 6.8 % (0-4.4) H 02/20/22 06:08 Basophils % 0.5 % (0-1.3) 02/20/22 06:08 Absolute Neutrophils 3.7 K/uL (1.8-8.0) 02/20/22 06:08 Absolute Lymphocytes 2.7 K/uL (0.7-4.9) 02/20/22 06:08 Absolute Monocytes 0.6 K/uL (0.1-1.3) 02/20/22 06:08 Absolute Eosinophils 0.5 K/uL (0-0.5) 02/20/22 06:08 Absolute Basophils 0.0 K/uL (0-0.5) 02/20/22 06:08 Sodium 142 mmol/L (136-145) 02/20/22 06:08 Potassium 3.5 mmol/L (3.5-5.1) 02/20/22 06:08 Chloride 110 mmol/L (98-107) H 02/20/22 06:08 Carbon Dioxide 28 mmol/L (21-32) 02/20/22 06:08 Anion Gap 7.5 mEq/L (5.0-15.0) D 02/20/22 06:08 BUN 20 mg/dL (7-18) H 02/20/22 06:08 Creatinine 1.10 mg/dL (0.55-1.3) 02/20/22 06:08 Est GFR (CKD-EPI) 56 ml/min (=/>90) L 02/20/22 06:08 Glucose 112 mg/dL (74-106) H 02/20/22 06:08 POC Glucose 107 mg/dL (65-120) 02/20/22 07:10 Calcium 8.7 mg/dL (8.5-10.1) 02/20/22 06:08 Magnesium 2.3 mg/dL (1.8-2.4) 02/20/22 06:08 Albumin 3.1 g/dL (3.4-5.0) L 02/20/22 06:08 Prealbumin 26.3 mg/dL (20-40) 02/20/22 06:08 Urine Color Yellow (Yellow) 02/17/22 19:39 Urine Appearance Clear (Clear) 02/17/22 19:39 Urine pH 6.0 (5.0-7.0) 02/17/22 19:39 Ur Specific Blackey 1.020 (1.005-1.030) 02/17/22 19:39 Glucose (UA)(Auto) 2+ (Negative) H 02/17/22 19:39 Urine Ketones Negative (Negative) 02/17/22 19:39 Urine Blood Negative (Negative) 02/17/22 19:39 Urine Nitrite Negative (Negative) 02/17/22 19:39 Urine Bilirubin Negative (Negative) 02/17/22 19:39 Urine Urobilinogen 0.2 mg/dL (0.2-1.0) 02/17/22 19:39 Ur Leukocyte Esterase Negative (Negative) 02/17/22 19:39 Urine RBC Cancelled 02/17/22 19:16 Urine WBC Cancelled 02/17/22 19:16 Ur Squamous Epith Cells Cancelled 02/17/22 19:16 Ur Urothelial Cells Cancelled 02/17/22 19:16 Calcium Oxalate Crystal Cancelled 02/17/22 19:16 Uric Acid Crystals Cancelled 02/17/22 19:16 Triple Phos Crystals Cancelled 02/17/22 19:16 Other Crystals Cancelled 02/17/22 19:16 Amorphous Sediment Cancelled 02/17/22 19:16 Glitter Cells Cancelled 02/17/22 19:16 Urine Bacteria Cancelled 02/17/22 19:16 Hyaline Casts Cancelled 02/17/22 19:16 Fine Granular Casts Cancelled 02/17/22 19:16 Coarse Granular Casts Cancelled 02/17/22 19:16 Waxy Casts Cancelled 02/17/22 19:16 RBC Casts Cancelled 02/17/22 19:16 WBC Casts Cancelled 02/17/22 19:16 Urine Mucus Cancelled 02/17/22 19:16 Urine Other Cancelled 02/17/22 19:16 Urine Trichomonas Cancelled 02/17/22 19:16 Urine Yeast Cancelled 02/17/22 19:16 Ur Yeast w Hyphae Cancelled 02/17/22 19:16 Urine Yeast (Budding) Cancelled 02/17/22 19:16 Urine Sperm Cancelled 02/17/22 19:16 Urine Culture Reflexed Cancelled 02/17/22 19:16 Urine Total Volume Cancelled 02/17/22 19:16 Urine Total Protein Negative (Negative) 02/17/22 19:39 SARS-CoV-2 Rap RNA(RT-PCR) Negative (NEGATIVE) 02/17/22 21:05 Weight: 234 lb Physician Update: She is making fair overall progress. CGA to SBA with bed mobility, transfers, 1000' with walker, 5 steps x 2. Blood work is good. Comment: no skin breakdown. 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 Please see the Rehabilitation Signature page for all necessary signatures.
[2022-02-20] MEDS: VALSARTAN 80 MG TAB PO SCH (11:11)
[2022-02-20] MEDS: BISOPROLOL/HCTZ 5/6.25MG TAB PO SCH (11:12)
--- NOTE | 2022-02-20 14:44 | RAD REPORT ---
EXAM DESCRIPTION: RAD - Barium Swallow Modified - 02/20/2022 2:29 pm CLINICAL HISTORY: Check on swallowing Neck pain, dysphagia COMPARISON: ABDOMINAL EXAM COMPLETE dated 06/30/2007 TECHNIQUE: The patient was given liquid, semi-solid and solid forms of barium. Lateral view fluorosc opic imaging was performed in conjunction with speech pathology service. FINDINGS: LARYNGEAL PENETRATION: CLEARED WITH THIN, THIN BY STRAW WITH BARIUM PILL, NOT CLEARED ON T HIN PHARYNGEAL RESIDUE: VALLECULAR- TRACE - MILD, THIN, DRY SOLID, PUREE PYRIFORM- TRACE- MILD, THIN, DRY SOLID, THIN BY STRAW WITH BARIUM PILL Total fluoroscopy time: 3 minutes and 28 seconds
[2022-02-20] MEDS: GABAPENTIN 300 MG CAP PO SCH (20:22)
[2022-02-20] MEDS: TRAZODONE 50 MG TABLET PO PRN (20:22)
[2022-02-20] MEDS: ATORVASTATIN 80 MG TAB PO SCH (20:22)
[2022-02-21] MEDS: ENOXAPARIN 40 MG/0.4 ML SQ SCH (07:23)
[2022-02-21] MEDS: INSULIN -REGULAR HUMAN 50 UNIT/0.5 ML ML SQ SCH ×4 (07:26→20:25)
[2022-02-21] MEDS: BISOPROLOL/HCTZ 5/6.25MG TAB PO SCH (08:00)
[2022-02-21] MEDS: VALSARTAN 80 MG TAB PO SCH (08:00)
[2022-02-21] MEDS: BISOPROLOL 5 MG TABLET PO SCH (08:00)
[2022-02-21] MEDS: TRESIBA SQ SCH (08:00)
[2022-02-21] MEDS: GABAPENTIN 300 MG CAP PO SCH ×2 (08:52→20:24)
[2022-02-21] MEDS: glipiZIDE 5 MG TAB PO SCH ×2 (08:53→16:24)
[2022-02-21] MEDS: ASPIRIN 81 MG CHEWABLE TABLET PO SCH (08:53)
[2022-02-21] MEDS: FERROUS SULFATE 325 MG TAB PO SCH (08:54)
[2022-02-21] MEDS: CLOPIDOGREL 75 MG TABLET PO SCH (08:54)
[2022-02-21] MEDS: AMLODIPINE 5 MG TAB PO SCH (09:00)
--- NOTE | 2022-02-21 15:35 | R.PN ---
PROGRESS NOTES ENCOUNTER DATE AND TIME: 02/21/2022 15:21 (CDT) NAME MILY SAGASTUME DATE OF : 1955 DATE OF ADMISSION: 02/17/2022 18:42 (CDT) CVACHIEF COMPLAINT: Stroke with residual right sided weakness SUBJECTIVE: Pt denied any depression. Pt denied any Shortness of Breath. CBC with diff is normal. Glu 125 to 202, prealbumin 26.3. Ambulated 1000' with rolling walker and SBA. VITAL SIGNS Temperature: 97.1 F SBP/DBP: 128/63 Pulse: 65 Resp: 16 MEDICATION ALLERGIES: No Known Drug Allergies (NKDA) ENVIRONMENTAL ALLERGIES: - Substance Allergies None Known - Other Allergies None Known NURSING: - Shower allowing shower - Bladder care per protocol - Skin care per protocol PRECAUTIONS: - Weight Bearing Precaution WBAT right LE - Fall Precaution Bed alarm TABS alarm Wheel chair alarm ACTIVITIES OOB only with supervision THERAPIES: - Dietary and Nutrition Adequate Nutrition. Nutritional Education. Nutritional Supplements. Evaluate and Treat. - Occupational Therapy Cognitive Retraining. Patient needs Occupational Therapy for a daily minimum of 1.5 hours at least 5 out of 7 days, to improve Activities of Daily Living, including: Eating, Grooming, Bathing, Dressing, Toileting, Toilet Transfers, Community Reintegration, Higher functional activities, Adaptive Equipme nt, Splinting, Household Tasks, and Other activities as determined. Visual Perceptual Training. Evalu ate and Treat. - Speech Therapy Cognitive Training. Expressive Language Skills. Memory Strategies. Patient needs Speech Therapy for a daily minimum of 1.5 hours at least 5 out of 7 days, to improve: Swallowing, Cognition, Language Ski lls, and Compensatory Strategies. Receptive Language Skills. Speech Intelligibility Training. Evaluat e and Treat. - Physical Therapy Patient needs Physical Therapy for a daily minimum of 1.5 hours at least 5 out of 7 days, to improve: Mobility, Strengthening, Transfers, Stretching, ROM, Endurance, Ability to manage stairs, Gait, and Balance. Balance Training. Evaluate and Treat. Mobility Training. Patient/Family Education. Safety Aw areness. Transfer Training. Modalities Training. Gait Training. PHYSICAL EXAM - Gen Alert and awake Lying in bed No apparent distress Oriented to: person, time, and place - Skin No skin breakdown. No abnormalities - Eyes No abnormalities - ENMT No abnormalities - Neck No abnormalities - CVS RRR - Chest No abnormalities - Resp No wheezing - Abd Soft - GI Non distended Deferred - No abnormalities - Ext No significant edema - MSK 4+/5 weakness in left upper and lower extremity - Neuro 4/5 strength right upper and lower extremities. - Psych Mild depression and anxiety. ASSESSMENT: Pt. is a 67 yo Right-handed female.On 02/13/2022 Pt. presented to [facility] with sudden onse t of right-side weakness.On 02/13/2022 she was admitted to [facility] with diagnosis CVA.Her impairment category is Stroke 01 - Right Body (Left Brain) (01.2).Pre-morbidly, Pt. was independent/ mod-I in Locomotion, Safety Awareness, Social Cognition, Balance, and Transfers Control; and she had good Sphincter Control, Communication, Self-Care, and Endurance.Currently, she has deficits of Locomo tion, Safety Awareness, Social Cognition, Balance, Transfers Control, Self-Care, Sphincter Control, E ndurance, and Communication.Pt. is now referred to [facility] for acute in-pat ient rehabilitation in order to maximize patient's functional independence in activities of daily zach ing, strength, ROM, and mobility.- Rehab Goal Patient has realistic goal of being discharged at assistance level 7-Ind to reside at Home with Fami ly/Relatives. MDM/PLAN: - Physical Therapy Gait dysfunction - to improve, our physical therapists will perform initial evaluation of pt's statu s upon admission and devise an individualized program for Gait Training, and Wheel Chair mobility Inability to transfer - to improve, our physical therapists will perform initial evaluation of pt's status upon admission and devise an individualized program for Bed mobility Need for home safety evaluation - to improve, our physical therapists will perform initial evaluatio n of pt's status upon admission and devise an individualized program for Home Evaluation Need in caregiver upon discharge - to improve, our physical therapists will perform initial evaluati on of pt's status upon admission and devise an individualized program for Caregiver Training New precaution - to improve, our physical therapists will perform initial evaluation of pt's status upon admission and devise an individualized program for Patient precaution education Edema - to improve, our physical therapists will perform initial evaluation of pt's status upon admis clarissa and devise an individualized program for Elevation Training, and Lymphedema Therapy Poor balance - to improve, our physical therapists will perform initial evaluation of pt's status up on admission and devise an individualized program for Balance Training Poor endurance - to improve, our physical therapists will perform initial evaluation of pt's status upon admission and devise an individualized program for Endurance Training Weakness - to improve, our physical therapists will perform initial evaluation of pt's status upon a dmission and devise an individualized program for Aquatic Therapy, Neuromuscular Reeducation, and Str engthening Achieving independence - to improve, our physical therapists will perform initial evaluation of pt's status upon admission and devise an individualized program for Community Reintegration Activities - Occupational Therapy ADL deficits - to improve, our occupation therapists will perform initial evaluation of pt's status upon admission and devise an individualized program for Bathing, Bed mobility, Community Reintegratio n, Cooking, Dressing, Eating, Fine Motor Skills, Grooming, Homemaking, Kitchen Mobility, Laundry, Pat ient Education, Safety Awareness, Splinting - Positioning, Transfers(Toilet, Tub, Shower), and Wheel Chair Management Cognitive deficits - to improve, our occupation therapists will perform initial evaluation of pt's s tatus upon admission and devise an individualized program for Cognition - orientation Need for manager of care - to improve, our occupation therapists will perform initial evaluation of pt's status upon admission and devise an individualized program for Caregiver Training Weakness - to improve, our occupation therapists will perform initial evaluation of pt's status upon admission and devise an individualized program for Aquatic Therapy, Balance, Endurance, UE ROM, and UE strengthening - Other See attached MAR (Medication Administration Record) - Diet Type Continue Regular - Diet - Liquid Texture Continue Regular - Tube Feed Continue N/A - Bladder care per protocol - Weight Bearing Precaution WBAT right LE - Fall Precaution Bed alarm TABS alarm Wheel chair alarm - Skin care per protocol - Diet - Solid Texture Continue Regular - Shower allowing shower for Dementia, TBI, Stroke, or others FUNCTIONAL STATUS: UPDATED AT WEEKLY TEAM CONFERENCE - Bladder Same accident frequency: 7-Ind - No accidents in the past 7 days - Bowel Same accident frequency: 7-Ind - No accidents in the past 7 days - Walking Same score based on distance walked: 0(N/A) Same score based on distance walked: 1(<=50ft) - Wheelchair Same score based on distance traveled: 0(N/A) FUNCTIONAL STATUS: - Self-Care A. Eating Ind B. Grooming sup C. Bathing sup D. Dressing - Upper sup E. Dressing - Lower Lorri F. Toileting sup - Sphincter Control G. Bladder control sup H. Bowel control Lorri - Transfers Control I. Bed/Chair/Wheelchair sup J. Toilet sup K. Tub/Shower sup - Locomotion L. Walk/Wheelchair (B) sup M. Stairs modA - Communication N. Comprehension (B) Michael O. Expression (B) Michael - Social Cognition P. Social Interaction Michael Q. Problem Solving Michael R. Memory Michael - Endurance Good - Balance Good - Safety Awareness Good QI SCORES: - Self-Care A. Eating 03-Partial/moderate assistance B. Oral hygiene 03-Partial/moderate assistance C. Toileting hygiene 02-Substantial/maximal assistance E. Shower/bathe self 02-Substantial/maximal assistance F. Upper body dressing 03-Partial/moderate assistance G. Lower body dressing 02-Substantial/maximal assistance H. Putting on/taking off footwear 88-Not attempted due to medical condition or safety concerns - Mobility A. Roll left and right 04-Supervision or touching assistance B. Sit to lying 04-Supervision or touching assistance C. Lying to sitting on side of bed 04-Supervision or touching assistance D. Sit to stand 03-Partial/moderate assistance E. Chair/[id number] transfer 03-Partial/moderate assistance F. Toilet transfer 03-Partial/moderate assistance G. Car transfer 88-Not attempted due to medical condition or safety concerns I. Walk 10 feet 03-Partial/moderate assistance J. Walk 50 feet with two turns 88-Not attempted due to medical condition or safety concerns K. Walk 150 feet 88-Not attempted due to medical condition or safety concerns L. Walking 10 feet on uneven surfaces 88-Not attempted due to medical condition or safety concerns M. 1 step (curb) 88-Not attempted due to medical condition or safety concerns N. 4 steps 88-Not attempted due to medical condition or safety concerns O. 12 steps 88-Not attempted due to medical condition or safety concerns P. Picking up object 88-Not attempted due to medical condition or safety concerns R. Wheel 50 feet with two turns 88-Not attempted due to medical condition or safety concerns S. Wheel 150 feet 88-Not attempted due to medical condition or safety concerns - Bladder and Bowel Bladder continence Bowel continence - Endurance Fair - Balance Fair - Safety Awareness Fair [facility]RENT [facility]. DEFICITS: Self-Care, Mobility, Endurance, Balance, and Safety Awareness SIGNATURE PANEL: (CDT)
[2022-02-21] MEDS: ATORVASTATIN 80 MG TAB PO SCH (20:24)
[2022-02-21] MEDS: DOCUSATE NA/SENNA CONC 1 TAB PO PRN (20:35)
[2022-02-21] MEDS: TRAZODONE 50 MG TABLET PO PRN (20:36)
[2022-02-22] MEDS: INSULIN -REGULAR HUMAN 50 UNIT/0.5 ML ML SQ SCH ×4 (07:04→20:04)
[2022-02-22] MEDS: ENOXAPARIN 40 MG/0.4 ML SQ SCH (07:08)
[2022-02-22] MEDS: AMLODIPINE 5 MG TAB PO SCH (08:00)
[2022-02-22] MEDS: TRESIBA SQ SCH (08:00)
[2022-02-22] MEDS ORDERED: VALSARTAN 40 MG TAB PO SCH (08:00)
[2022-02-22] MEDS: ASPIRIN 81 MG CHEWABLE TABLET PO SCH (08:34)
[2022-02-22] MEDS: FERROUS SULFATE 325 MG TAB PO SCH (08:34)
[2022-02-22] MEDS: CLOPIDOGREL 75 MG TABLET PO SCH (08:34)
[2022-02-22] MEDS: GABAPENTIN 300 MG CAP PO SCH ×2 (08:34→20:05)
[2022-02-22] MEDS: VALSARTAN 40 MG TAB PO SCH (08:35)
[2022-02-22] MEDS: glipiZIDE 5 MG TAB PO SCH ×2 (08:35→16:52)
[2022-02-22] MEDS: BISOPROLOL 5 MG TABLET PO SCH (08:37)
[2022-02-22] MEDS: BISOPROLOL/HCTZ 5/6.25MG TAB PO SCH (10:19)
[2022-02-22] MEDS ORDERED: BISACODYL 10 MG RECTAL SUPP PR PRN (16:21)
[2022-02-22] MEDS: ATORVASTATIN 80 MG TAB PO SCH (20:05)
[2022-02-22] MEDS: TRAZODONE 50 MG TABLET PO PRN (20:05)
[2022-02-23] MEDS: INSULIN -REGULAR HUMAN 50 UNIT/0.5 ML ML SQ SCH ×4 (07:30→20:04)
[2022-02-23] MEDS: TRESIBA SQ SCH (08:00)
[2022-02-23] MEDS: ASPIRIN 81 MG CHEWABLE TABLET PO SCH (08:18)
[2022-02-23] MEDS: CLOPIDOGREL 75 MG TABLET PO SCH (08:18)
[2022-02-23] MEDS: FERROUS SULFATE 325 MG TAB PO SCH (08:18)
[2022-02-23] MEDS: ENOXAPARIN 40 MG/0.4 ML SQ SCH (08:18)
[2022-02-23] MEDS: GABAPENTIN 300 MG CAP PO SCH ×2 (08:18→20:11)
[2022-02-23] MEDS: BISOPROLOL 5 MG TABLET PO SCH (08:19)
[2022-02-23] MEDS: BISOPROLOL/HCTZ 5/6.25MG TAB PO SCH (08:19)
[2022-02-23] MEDS: glipiZIDE 5 MG TAB PO SCH ×2 (08:20→17:44)
[2022-02-23] MEDS: VALSARTAN 40 MG TAB PO SCH (10:12)
[2022-02-23] MEDS: AMLODIPINE 5 MG TAB PO SCH (10:13)
[2022-02-23] MEDS: TRAZODONE 50 MG TABLET PO PRN (20:11)
[2022-02-23] MEDS: ATORVASTATIN 80 MG TAB PO SCH (20:11)
[2022-02-24] MEDS: INSULIN -REGULAR HUMAN 50 UNIT/0.5 ML ML SQ SCH ×4 (07:30→20:07)
[2022-02-24] MEDS: ENOXAPARIN 40 MG/0.4 ML SQ SCH (07:49)
[2022-02-24] MEDS: BISOPROLOL/HCTZ 5/6.25MG TAB PO SCH (07:50)
[2022-02-24] MEDS: glipiZIDE 5 MG TAB PO SCH ×2 (07:50→17:04)
[2022-02-24] MEDS: ASPIRIN 81 MG CHEWABLE TABLET PO SCH (07:50)
[2022-02-24] MEDS: CLOPIDOGREL 75 MG TABLET PO SCH (07:51)
[2022-02-24] MEDS: GABAPENTIN 300 MG CAP PO SCH ×2 (07:51→19:24)
[2022-02-24] MEDS: FERROUS SULFATE 325 MG TAB PO SCH (07:51)
[2022-02-24] MEDS: BISOPROLOL 5 MG TABLET PO SCH (07:51)
[2022-02-24] MEDS: TRESIBA SQ SCH (08:00)
[2022-02-24] MEDS ORDERED: SEMAGLUTIDE SQ SCH ×2 (09:00)
[2022-02-24] MEDS: AMLODIPINE 5 MG TAB PO SCH (11:03)
[2022-02-24] MEDS: VALSARTAN 40 MG TAB PO SCH (11:03)
[2022-02-24] MEDS ORDERED: TRAZODONE 50 MG TABLET PO PRN (13:55)
--- NOTE | 2022-02-24 17:40 | R.PN ---
PROGRESS NOTES ENCOUNTER DATE AND TIME: 02/24/2022 17:37 (CDT) NAME MILY SAGASTUME DATE OF : 1955 DATE OF ADMISSION: 02/17/2022 18:42 (CDT) CVACHIEF COMPLAINT: Stroke with residual right sided weakness SUBJECTIVE: Pt denied any depression. Pt denied any Shortness of Breath. CBC with diff is normal. Glu 123 to 181, prealbumin 26.3. Ambulated 260' with rolling walker and SBA. VITAL SIGNS Temperature: 97.2 F SBP/DBP: 121/64 Pulse: 61 Resp: 16 MEDICATION ALLERGIES: No Known Drug Allergies (NKDA) ENVIRONMENTAL ALLERGIES: - Substance Allergies None Known - Other Allergies None Known NURSING: - Shower allowing shower - Bladder care per protocol - Skin care per protocol PRECAUTIONS: - Weight Bearing Precaution WBAT right LE - Fall Precaution Bed alarm TABS alarm Wheel chair alarm ACTIVITIES OOB only with supervision THERAPIES: - Dietary and Nutrition Adequate Nutrition. Nutritional Education. Nutritional Supplements. Evaluate and Treat. - Occupational Therapy Cognitive Retraining. Patient needs Occupational Therapy for a daily minimum of 1.5 hours at least 5 out of 7 days, to improve Activities of Daily Living, including: Eating, Grooming, Bathing, Dressing, Toileting, Toilet Transfers, Community Reintegration, Higher functional activities, Adaptive Equipme nt, Splinting, Household Tasks, and Other activities as determined. Visual Perceptual Training. Evalu ate and Treat. - Speech Therapy Cognitive Training. Expressive Language Skills. Memory Strategies. Patient needs Speech Therapy for a daily minimum of 1.5 hours at least 5 out of 7 days, to improve: Swallowing, Cognition, Language Ski lls, and Compensatory Strategies. Receptive Language Skills. Speech Intelligibility Training. Evaluat e and Treat. - Physical Therapy Patient needs Physical Therapy for a daily minimum of 1.5 hours at least 5 out of 7 days, to improve: Mobility, Strengthening, Transfers, Stretching, ROM, Endurance, Ability to manage stairs, Gait, and Balance. Balance Training. Evaluate and Treat. Mobility Training. Patient/Family Education. Safety Aw areness. Transfer Training. Modalities Training. Gait Training. PHYSICAL EXAM - Gen Alert and awake Lying in bed No apparent distress Oriented to: person, time, and place - Skin No skin breakdown. No abnormalities - Eyes No abnormalities - ENMT No abnormalities - Neck No abnormalities - CVS RRR - Chest No abnormalities - Resp No wheezing - Abd Soft - GI Non distended Deferred - No abnormalities - Ext No significant edema - MSK 4+/5 weakness in left upper and lower extremity - Neuro 4/5 strength right upper and lower extremities. - Psych Mild depression and anxiety. ASSESSMENT: Pt. is a 67 yo Right-handed female.On 02/13/2022 Pt. presented to [facility] with sudden onse t of right-side weakness.On 02/13/2022 she was admitted to [facility] with diagnosis CVA.Her impairment category is Stroke 01 - Right Body (Left Brain) (01.2).Pre-morbidly, Pt. was independent/ mod-I in Locomotion, Safety Awareness, Social Cognition, Balance, and Transfers Control; and she had good Sphincter Control, Communication, Self-Care, and Endurance.Currently, she has deficits of Locomo tion, Safety Awareness, Social Cognition, Balance, Transfers Control, Self-Care, Sphincter Control, E ndurance, and Communication.Pt. is now referred to [facility] for acute in-pat ient rehabilitation in order to maximize patient's functional independence in activities of daily zach ing, strength, ROM, and mobility.- Rehab Goal Patient has realistic goal of being discharged at assistance level 7-Ind to reside at Home with Fami ly/Relatives. MDM/PLAN: - Physical Therapy Gait dysfunction - to improve, our physical therapists will perform initial evaluation of pt's statu s upon admission and devise an individualized program for Gait Training, and Wheel Chair mobility Inability to transfer - to improve, our physical therapists will perform initial evaluation of pt's status upon admission and devise an individualized program for Bed mobility Need for home safety evaluation - to improve, our physical therapists will perform initial evaluatio n of pt's status upon admission and devise an individualized program for Home Evaluation Need in caregiver upon discharge - to improve, our physical therapists will perform initial evaluati on of pt's status upon admission and devise an individualized program for Caregiver Training New precaution - to improve, our physical therapists will perform initial evaluation of pt's status upon admission and devise an individualized program for Patient precaution education Edema - to improve, our physical therapists will perform initial evaluation of pt's status upon admi ssion and devise an individualized program for Elevation Training, and Lymphedema Therapy Poor balance - to improve, our physical therapists will perform initial evaluation of pt's status up on admission and devise an individualized program for Balance Training Poor endurance - to improve, our physical therapists will perform initial evaluation of pt's status upon admission and devise an individualized program for Endurance Training Weakness - to improve, our physical therapists will perform initial evaluation of pt's status upon a dmission and devise an individualized program for Aquatic Therapy, Neuromuscular Reeducation, and Str engthening Achieving independence - to improve, our physical therapists will perform initial evaluation of pt's status upon admission and devise an individualized program for Community Reintegration Activities - Occupational Therapy ADL deficits - to improve, our occupation therapists will perform initial evaluation of pt's status upon admission and devise an individualized program for Bathing, Bed mobility, Community Reintegratio n, Cooking, Dressing, Eating, Fine Motor Skills, Grooming, Homemaking, Kitchen Mobility, Laundry, Pat ient Education, Safety Awareness, Splinting - Positioning, Transfers(Toilet, Tub, Shower), and Wheel Chair Management Cognitive deficits - to improve, our occupation therapists will perform initial evaluation of pt's s tatus upon admission and devise an individualized program for Cognition - orientation Need for care transition mgr - to improve, our occupation therapists will perform initial evaluation of pt's status upon admission and devise an individualized program for Caregiver Training Weakness - to improve, our occupation therapists will perform initial evaluation of pt's status upon admission and devise an individualized program for Aquatic Therapy, Balance, Endurance, UE ROM, and UE strengthening - Other See attached MAR (Medication Administration Record) - Diet Type Continue Regular - Diet - Liquid Texture Continue Regular - Tube Feed Continue N/A - Bladder care per protocol - Weight Bearing Precaution WBAT right LE - Fall Precaution Bed alarm TABS alarm Wheel chair alarm - Skin care per protocol - Diet - Solid Texture Continue Regular - Shower allowing shower for Dementia, TBI, Stroke, or others FUNCTIONAL STATUS: UPDATED AT WEEKLY TEAM CONFERENCE - Bladder Same accident frequency: 7-Ind - No accidents in the past 7 days - Bowel Same accident frequency: 7-Ind - No accidents in the past 7 days - Walking Same score based on distance walked: 0(N/A) Same score based on distance walked: 1(<=50ft) - Wheelchair Same score based on distance traveled: 0(N/A) FUNCTIONAL STATUS: - Self-Care A. Eating Ind B. Grooming sup C. Bathing sup D. Dressing - Upper sup E. Dressing - Lower Lorri F. Toileting sup - Sphincter Control G. Bladder control sup H. Bowel control Lorri - Transfers Control I. Bed/Chair/Wheelchair sup J. Toilet sup K. Tub/Shower sup - Locomotion L. Walk/Wheelchair (B) sup M. Stairs modA - Communication N. Comprehension (B) Michael O. Expression (B) Michael - Social Cognition P. Social Interaction Michael Q. Problem Solving Michael R. Memory Michael - Endurance Good - Balance Good - Safety Awareness Good QI SCORES: - Self-Care A. Eating 03-Partial/moderate assistance B. Oral hygiene 03-Partial/moderate assistance C. Toileting hygiene 02-Substantial/maximal assistance E. Shower/bathe self 02-Substantial/maximal assistance F. Upper body dressing 03-Partial/moderate assistance G. Lower body dressing 02-Substantial/maximal assistance H. Putting on/taking off footwear 88-Not attempted due to medical condition or safety concerns - Mobility A. Roll left and right 04-Supervision or touching assistance B. Sit to lying 04-Supervision or touching assistance C. Lying to sitting on side of bed 04-Supervision or touching assistance D. Sit to stand 03-Partial/moderate assistance E. Chair/[id number] transfer 03-Partial/moderate assistance F. Toilet transfer 03-Partial/moderate assistance G. Car transfer 88-Not attempted due to medical condition or safety concerns I. Walk 10 feet 03-Partial/moderate assistance J. Walk 50 feet with two turns 88-Not attempted due to medical condition or safety concerns K. Walk 150 feet 88-Not attempted due to medical condition or safety concerns L. Walking 10 feet on uneven surfaces 88-Not attempted due to medical condition or safety concerns M. 1 step (curb) 88-Not attempted due to medical condition or safety concerns N. 4 steps 88-Not attempted due to medical condition or safety concerns O. 12 steps 88-Not attempted due to medical condition or safety concerns P. Picking up object 88-Not attempted due to medical condition or safety concerns R. Wheel 50 feet with two turns 88-Not attempted due to medical condition or safety concerns S. Wheel 150 feet 88-Not attempted due to medical condition or safety concerns - Bladder and Bowel Bladder continence Bowel continence - Endurance Fair - Balance Fair - Safety Awareness Fair CURRENT [facility]. DEFICITS: Self-Care, Mobility, Endurance, Balance, and Safety Awareness SIGNATURE PANEL: (CDT)
[2022-02-24] MEDS: ATORVASTATIN 80 MG TAB PO SCH (19:24)
[2022-02-25] MEDS: INSULIN -REGULAR HUMAN 50 UNIT/0.5 ML ML SQ SCH ×4 (07:30→20:06)
[2022-02-25] MEDS: ASPIRIN 81 MG CHEWABLE TABLET PO SCH (07:36)
[2022-02-25] MEDS: BISOPROLOL/HCTZ 5/6.25MG TAB PO SCH (07:37)
[2022-02-25] MEDS: BISOPROLOL 5 MG TABLET PO SCH (07:37)
[2022-02-25] MEDS: TRESIBA SQ SCH (07:38)
[2022-02-25] MEDS: glipiZIDE 5 MG TAB PO SCH ×2 (07:38→17:33)
[2022-02-25] MEDS: FERROUS SULFATE 325 MG TAB PO SCH (07:38)
[2022-02-25] MEDS: CLOPIDOGREL 75 MG TABLET PO SCH (07:38)
[2022-02-25] MEDS: GABAPENTIN 300 MG CAP PO SCH ×2 (07:38→19:15)
[2022-02-25] MEDS: ENOXAPARIN 40 MG/0.4 ML SQ SCH (07:38)
[2022-02-25] MEDS: VALSARTAN 40 MG TAB PO SCH (08:00)
[2022-02-25] MEDS: AMLODIPINE 5 MG TAB PO SCH (08:00)
--- NOTE | 2022-02-25 17:47 | R.PN ---
PROGRESS NOTES ENCOUNTER DATE AND TIME: 02/25/2022 17:43 (CDT) NAME MILY SAGASTUME DATE OF : 1955 DATE OF ADMISSION: 02/17/2022 18:42 (CDT) CVACHIEF COMPLAINT: Stroke with residual right sided weakness SUBJECTIVE: Pt denied any depression. Pt denied any Shortness of Breath. CBC with diff is normal. Glu 113 to 224, prealbumin 26.3. Ambulated 250' with rolling walker and SBA. VITAL SIGNS Temperature: 97.6 F SBP/DBP: 116/58 Pulse: 61 Resp: 15 MEDICATION ALLERGIES: No Known Drug Allergies (NKDA) ENVIRONMENTAL ALLERGIES: - Substance Allergies None Known - Other Allergies None Known NURSING: - Shower allowing shower - Bladder care per protocol - Skin care per protocol PRECAUTIONS: - Weight Bearing Precaution WBAT right LE - Fall Precaution Bed alarm TABS alarm Wheel chair alarm ACTIVITIES OOB only with supervision THERAPIES: - Dietary and Nutrition Adequate Nutrition. Nutritional Education. Nutritional Supplements. Evaluate and Treat. - Occupational Therapy Cognitive Retraining. Patient needs Occupational Therapy for a daily minimum of 1.5 hours at least 5 out of 7 days, to improve Activities of Daily Living, including: Eating, Grooming, Bathing, Dressing, Toileting, Toilet Transfers, Community Reintegration, Higher functional activities, Adaptive Equipme nt, Splinting, Household Tasks, and Other activities as determined. Visual Perceptual Training. Evalu ate and Treat. - Speech Therapy Cognitive Training. Expressive Language Skills. Memory Strategies. Patient needs Speech Therapy for a daily minimum of 1.5 hours at least 5 out of 7 days, to improve: Swallowing, Cognition, Language Ski lls, and Compensatory Strategies. Receptive Language Skills. Speech Intelligibility Training. Evaluat e and Treat. - Physical Therapy Patient needs Physical Therapy for a daily minimum of 1.5 hours at least 5 out of 7 days, to improve: Mobility, Strengthening, Transfers, Stretching, ROM, Endurance, Ability to manage stairs, Gait, and Balance. Balance Training. Evaluate and Treat. Mobility Training. Patient/Family Education. Safety Aw areness. Transfer Training. Modalities Training. Gait Training. PHYSICAL EXAM - Gen Alert and awake Lying in bed No apparent distress Oriented to: person, time, and place - Skin No skin breakdown. No abnormalities - Eyes No abnormalities - ENMT No abnormalities - Neck No abnormalities - CVS RRR - Chest No abnormalities - Resp No wheezing - Abd Soft - GI Non distended Deferred - No abnormalities - Ext No significant edema - MSK 4+/5 weakness in left upper and lower extremity - Neuro 4/5 strength right upper and lower extremities. - Psych Mild depression and anxiety. ASSESSMENT: Pt. is a 67 yo Right-handed female.On 02/13/2022 Pt. presented to [facility] with sudden onse t of right-side weakness.On 02/13/2022 she was admitted to [facility] with diagnosis CVA.Her impairment category is Stroke 01 - Right Body (Left Brain) (01.2).Pre-morbidly, Pt. was independent/ mod-I in Locomotion, Safety Awareness, Social Cognition, Balance, and Transfers Control; and she had good Sphincter Control, Communication, Self-Care, and Endurance.Currently, she has deficits of Locomo tion, Safety Awareness, Social Cognition, Balance, Transfers Control, Self-Care, Sphincter Control, E ndurance, and Communication.Pt. is now referred to [facility] for acute in-pat ient rehabilitation in order to maximize patient's functional independence in activities of daily zach ing, strength, ROM, and mobility.- Rehab Goal Patient has realistic goal of being discharged at assistance level 7-Ind to reside at Home with Fami ly/Relatives. MDM/PLAN: - Physical Therapy Gait dysfunction - to improve, our physical therapists will perform initial evaluation of pt's statu s upon admission and devise an individualized program for Gait Training, and Wheel Chair mobility Inability to transfer - to improve, our physical therapists will perform initial evaluation of pt's status upon admission and devise an individualized program for Bed mobility Need for home safety evaluation - to improve, our physical therapists will perform initial evaluatio n of pt's status upon admission and devise an individualized program for Home Evaluation Need in caregiver upon discharge - to improve, our physical therapists will perform initial evaluati on of pt's status upon admission and devise an individualized program for Caregiver Training New precaution - to improve, our physical therapists will perform initial evaluation of pt's status upon admission and devise an individualized program for Patient precaution education Edema - to improve, our physical therapists will perform initial evaluation of pt's status upon admi ssion and devise an individualized program for Elevation Training, and Lymphedema Therapy Poor balance - to improve, our physical therapists will perform initial evaluation of pt's status up on admission and devise an individualized program for Balance Training Poor endurance - to improve, our physical therapists will perform initial evaluation of pt's status upon admission and devise an individualized program for Endurance Training Weakness - to improve, our physical therapists will perform initial evaluation of pt's status upon a dmission and devise an individualized program for Aquatic Therapy, Neuromuscular Reeducation, and Str engthening Achieving independence - to improve, our physical therapists will perform initial evaluation of pt's status upon admission and devise an individualized program for Community Reintegration Activities - Occupational Therapy ADL deficits - to improve, our occupation therapists will perform initial evaluation of pt's status upon admission and devise an individualized program for Bathing, Bed mobility, Community Reintegratio n, Cooking, Dressing, Eating, Fine Motor Skills, Grooming, Homemaking, Kitchen Mobility, Laundry, Pat ient Education, Safety Awareness, Splinting - Positioning, Transfers(Toilet, Tub, Shower), and Wheel Chair Management Cognitive deficits - to improve, our occupation therapists will perform initial evaluation of pt's s tatus upon admission and devise an individualized program for Cognition - orientation Need for daycare teacher - to improve, our occupation therapists will perform initial evaluation of pt's status upon admission and devise an individualized program for Caregiver Training Weakness - to improve, our occupation therapists will perform initial evaluation of pt's status upon admission and devise an individualized program for Aquatic Therapy, Balance, Endurance, UE ROM, and UE strengthening - Other See attached MAR (Medication Administration Record) - Diet Type Continue Regular - Diet - Liquid Texture Continue Regular - Tube Feed Continue N/A - Bladder care per protocol - Weight Bearing Precaution WBAT right LE - Fall Precaution Bed alarm TABS alarm Wheel chair alarm - Skin care per protocol - Diet - Solid Texture Continue Regular - Shower allowing shower for Dementia, TBI, Stroke, or others FUNCTIONAL STATUS: UPDATED AT WEEKLY TEAM CONFERENCE - Bladder Same accident frequency: 7-Ind - No accidents in the past 7 days - Bowel Same accident frequency: 7-Ind - No accidents in the past 7 days - Walking Same score based on distance walked: 0(N/A) Same score based on distance walked: 1(<=50ft) - Wheelchair Same score based on distance traveled: 0(N/A) FUNCTIONAL STATUS: - Self-Care A. Eating Ind B. Grooming sup C. Bathing sup D. Dressing - Upper sup E. Dressing - Lower Lorri F. Toileting sup - Sphincter Control G. Bladder control sup H. Bowel control Lorri - Transfers Control I. Bed/Chair/Wheelchair sup J. Toilet sup K. Tub/Shower sup - Locomotion L. Walk/Wheelchair (B) sup M. Stairs modA - Communication N. Comprehension (B) Michael O. Expression (B) Michael - Social Cognition P. Social Interaction Michael Q. Problem Solving Michael R. Memory Michael - Endurance Good - Balance Good - Safety Awareness Good QI SCORES: - Self-Care A. Eating 03-Partial/moderate assistance B. Oral hygiene 03-Partial/moderate assistance C. Toileting hygiene 02-Substantial/maximal assistance E. Shower/bathe self 02-Substantial/maximal assistance F. Upper body dressing 03-Partial/moderate assistance G. Lower body dressing 02-Substantial/maximal assistance H. Putting on/taking off footwear 88-Not attempted due to medical condition or safety concerns - Mobility A. Roll left and right 04-Supervision or touching assistance B. Sit to lying 04-Supervision or touching assistance C. Lying to sitting on side of bed 04-Supervision or touching assistance D. Sit to stand 03-Partial/moderate assistance E. Chair/[id number] transfer 03-Partial/moderate assistance F. Toilet transfer 03-Partial/moderate assistance G. Car transfer 88-Not attempted due to medical condition or safety concerns I. Walk 10 feet 03-Partial/moderate assistance J. Walk 50 feet with two turns 88-Not attempted due to medical condition or safety concerns K. Walk 150 feet 88-Not attempted due to medical condition or safety concerns L. Walking 10 feet on uneven surfaces 88-Not attempted due to medical condition or safety concerns M. 1 step (curb) 88-Not attempted due to medical condition or safety concerns N. 4 steps 88-Not attempted due to medical condition or safety concerns O. 12 steps 88-Not attempted due to medical condition or safety concerns P. Picking up object 88-Not attempted due to medical condition or safety concerns R. Wheel 50 feet with two turns 88-Not attempted due to medical condition or safety concerns S. Wheel 150 feet 88-Not attempted due to medical condition or safety concerns - Bladder and Bowel Bladder continence Bowel continence - Endurance Fair - Balance Fair - Safety Awareness Fair CURRENT [facility]. DEFICITS: Self-Care, Mobility, Endurance, Balance, and Safety Awareness SIGNATURE PANEL: (CDT)
[2022-02-25] MEDS: ATORVASTATIN 80 MG TAB PO SCH (19:15)
[2022-02-25] MEDS: TRAZODONE 50 MG TABLET PO PRN (19:15)
[2022-02-25] MEDS: DOCUSATE NA/SENNA CONC 1 TAB PO PRN (19:21)
[2022-02-26] MEDS: INSULIN -REGULAR HUMAN 50 UNIT/0.5 ML ML SQ SCH ×4 (07:16→20:24)
[2022-02-26] MEDS: AMLODIPINE 5 MG TAB PO SCH (07:17)
[2022-02-26] MEDS: VALSARTAN 40 MG TAB PO SCH (07:17)
[2022-02-26] MEDS: ENOXAPARIN 40 MG/0.4 ML SQ SCH (07:20)
[2022-02-26] MEDS: BISOPROLOL/HCTZ 5/6.25MG TAB PO SCH (08:00)
[2022-02-26] MEDS: BISOPROLOL 5 MG TABLET PO SCH (08:00)
[2022-02-26] MEDS: TRESIBA SQ SCH (08:00)
[2022-02-26] MEDS: ASPIRIN 81 MG CHEWABLE TABLET PO SCH (08:00)
[2022-02-26] MEDS: GABAPENTIN 300 MG CAP PO SCH ×2 (08:00→20:24)
[2022-02-26] MEDS: glipiZIDE 5 MG TAB PO SCH ×2 (08:01→16:31)
[2022-02-26] MEDS: FERROUS SULFATE 325 MG TAB PO SCH (08:01)
[2022-02-26] MEDS: CLOPIDOGREL 75 MG TABLET PO SCH (08:01)
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
[2022-02-26] MEDS: DOCUSATE NA/SENNA CONC 1 TAB PO PRN (20:23)
[2022-02-26] MEDS: TRAZODONE 50 MG TABLET PO PRN (20:23)
[2022-02-26] MEDS: ATORVASTATIN 80 MG TAB PO SCH (20:24)
[2022-02-27 04:37] LABS: Absolute Lymphocytes (CBC) 2.9 K/uL (0.7-4.9); Hematocrit 35.5 % (36.0-45.0); Lymphocytes % 33.6 % (15.3-44.8); MPV 7.3 fL (7.6-11.3); RBC Red Blood Cell Count 4.15 M/uL (3.86-4.86)
[2022-02-27 04:54] LABS: Albumin 2.9 g/dL (3.4-5.0); Magnesium 2.2 mg/dL (1.8-2.4); Potassium 3.4 mmol/L (3.5-5.1); Prealbumin 14.4 mg/dL (20-40)
[2022-02-27] MEDS: INSULIN -REGULAR HUMAN 50 UNIT/0.5 ML ML SQ SCH ×4 (07:13→20:26)
[2022-02-27] MEDS: ENOXAPARIN 40 MG/0.4 ML SQ SCH (07:14)
[2022-02-27] MEDS: FERROUS SULFATE 325 MG TAB PO SCH (07:42)
[2022-02-27] MEDS: BISOPROLOL/HCTZ 5/6.25MG TAB PO SCH (07:42)
[2022-02-27] MEDS: BISOPROLOL 5 MG TABLET PO SCH (07:42)
[2022-02-27] MEDS: CLOPIDOGREL 75 MG TABLET PO SCH (07:43)
[2022-02-27] MEDS: glipiZIDE 5 MG TAB PO SCH ×2 (07:43→16:36)
[2022-02-27] MEDS: GABAPENTIN 300 MG CAP PO SCH ×2 (07:43→20:26)
[2022-02-27] MEDS: ASPIRIN 81 MG CHEWABLE TABLET PO SCH (07:43)
[2022-02-27] MEDS: TRESIBA SQ SCH (07:44)
[2022-02-27] MEDS: AMLODIPINE 5 MG TAB PO SCH (09:34)
[2022-02-27] MEDS: VALSARTAN 40 MG TAB PO SCH (09:35)
[2022-02-27] MEDS ORDERED: POTASSIUM CL SA 10 MEQ TAB PO ONE (15:00)
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
[2022-02-27] MEDS: ATORVASTATIN 80 MG TAB PO SCH (20:26)
[2022-02-27] MEDS: TRAZODONE 50 MG TABLET PO PRN (20:26)
[2022-02-27] MEDS: DOCUSATE NA/SENNA CONC 1 TAB PO PRN (20:30)
[2022-02-28] MEDS: INSULIN -REGULAR HUMAN 50 UNIT/0.5 ML ML SQ SCH ×2 (07:30→11:30)
[2022-02-28] MEDS: TRESIBA SQ SCH (08:00)
[2022-02-28] MEDS ORDERED: POTASSIUM CL SA 10 MEQ TAB PO SCH (08:00)
[2022-02-28] MEDS: ASPIRIN 81 MG CHEWABLE TABLET PO SCH (08:06)
[2022-02-28] MEDS: ENOXAPARIN 40 MG/0.4 ML SQ SCH (08:06)
[2022-02-28] MEDS: AMLODIPINE 5 MG TAB PO SCH (08:06)
[2022-02-28] MEDS: GABAPENTIN 300 MG CAP PO SCH (08:06)
[2022-02-28] MEDS: FERROUS SULFATE 325 MG TAB PO SCH (08:06)
[2022-02-28] MEDS: CLOPIDOGREL 75 MG TABLET PO SCH (08:07)
[2022-02-28] MEDS: VALSARTAN 40 MG TAB PO SCH (08:07)
[2022-02-28] MEDS: glipiZIDE 5 MG TAB PO SCH (08:07)
[2022-02-28] MEDS: BISOPROLOL/HCTZ 5/6.25MG TAB PO SCH (08:09)
[2022-02-28] MEDS: BISOPROLOL 5 MG TABLET PO SCH (08:10)
[2022-02-28 08:12] VITALS: BP 133/63
--- NOTE | 2022-02-28 09:45 | P.RH.PN ---
Estimated Length of Stay: 11 Expected Discharge Date: 02/28/22 Family Support: Yes Snf Goal: Mobility, Transfers, Self Care Vital Signs: Last Vital Signs Temp 97.7 F 02/27/22 20:00 Pulse 67 02/28/22 08:10 Resp 16 02/27/22 20:00 BP 133/63 02/28/22 08:10 Pulse Ox 100 02/27/22 20:00 Laboratory: Laboratory Last Values WBC 8.7 K/uL (4.3-10.9) D 02/27/22 04:16 RBC 4.15 M/uL (3.86-4.86) 02/27/22 04:16 Hgb 11.7 g/dL (12.0-15.0) L 02/27/22 04:16 Hct 35.5 % (36.0-45.0) L 02/27/22 04:16 MCV 85.3 fL (80-100) 02/27/22 04:16 MCH 28.1 pg (27.0-35.0) 02/27/22 04:16 MCHC 32.9 g/dL (32.0-36.0) 02/27/22 04:16 RDW 14.7 % (12.1-15.2) 02/27/22 04:16 Plt Count 263 K/uL (152-406) 02/27/22 04:16 MPV 7.3 fL (7.6-11.3) L 02/27/22 04:16 Neutrophils % 53.9 % (41.7-73.7) 02/27/22 04:16 Lymphocytes % 33.6 % (15.3-44.8) 02/27/22 04:16 Monocytes % 7.9 % (3.3-12.3) 02/27/22 04:16 Eosinophils % 3.9 % (0-4.4) 02/27/22 04:16 Basophils % 0.7 % (0-1.3) 02/27/22 04:16 Absolute Neutrophils 4.7 K/uL (1.8-8.0) 02/27/22 04:16 Absolute Lymphocytes 2.9 K/uL (0.7-4.9) 02/27/22 04:16 Absolute Monocytes 0.7 K/uL (0.1-1.3) 02/27/22 04:16 Absolute Eosinophils 0.3 K/uL (0-0.5) 02/27/22 04:16 Absolute Basophils 0.1 K/uL (0-0.5) 02/27/22 04:16 Sodium 142 mmol/L (136-145) 02/27/22 04:16 Potassium 3.4 mmol/L (3.5-5.1) L 02/27/22 04:16 Chloride 111 mmol/L (98-107) H 02/27/22 04:16 Carbon Dioxide 26 mmol/L (21-32) 02/27/22 04:16 Anion Gap 8.4 mEq/L (5.0-15.0) 02/27/22 04:16 BUN 20 mg/dL (7-18) H 02/27/22 04:16 Creatinine 0.98 mg/dL (0.55-1.3) 02/27/22 04:16 Est GFR (CKD-EPI) 64 ml/min (=/>90) L 02/27/22 04:16 Glucose 143 mg/dL (74-106) H 02/27/22 04:16 POC Glucose 129 mg/dL (65-120) H 02/28/22 08:17 Calcium 8.3 mg/dL (8.5-10.1) L 02/27/22 04:16 Magnesium 2.2 mg/dL (1.8-2.4) 02/27/22 04:16 Albumin 2.9 g/dL (3.4-5.0) L 02/27/22 04:16 Prealbumin 14.4 mg/dL (20-40) L 02/27/22 04:16 Urine Color Yellow (Yellow) 02/17/22 19:39 Urine Appearance Clear (Clear) 02/17/22 19:39 Urine pH 6.0 (5.0-7.0) 02/17/22 19:39 Ur Specific [place] 1.020 (1.005-1.030) 02/17/22 19:39 Glucose (UA)(Auto) 2+ (Negative) H 02/17/22 19:39 Urine Ketones Negative (Negative) 02/17/22 19:39 Urine Blood Negative (Negative) 02/17/22 19:39 Urine Nitrite Negative (Negative) 02/17/22 19:39 Urine Bilirubin Negative (Negative) 02/17/22 19:39 Urine Urobilinogen 0.2 mg/dL (0.2-1.0) 02/17/22 19:39 Ur Leukocyte Esterase Negative (Negative) 02/17/22 19:39 Urine RBC Cancelled 02/17/22 19:16 Urine WBC Cancelled 02/17/22 19:16 Ur Squamous Epith Cells Cancelled 02/17/22 19:16 Ur Urothelial Cells Cancelled 02/17/22 19:16 Calcium Oxalate Crystal Cancelled 02/17/22 19:16 Uric Acid Crystals Cancelled 02/17/22 19:16 Triple Phos Crystals Cancelled 02/17/22 19:16 Other Crystals Cancelled 02/17/22 19:16 Amorphous Sediment Cancelled 02/17/22 19:16 Glitter Cells Cancelled 02/17/22 19:16 Urine Bacteria Cancelled 02/17/22 19:16 Hyaline Casts Cancelled 02/17/22 19:16 Fine Granular Casts Cancelled 02/17/22 19:16 Coarse Granular Casts Cancelled 02/17/22 19:16 Waxy Casts Cancelled 02/17/22 19:16 RBC Casts Cancelled 02/17/22 19:16 WBC Casts Cancelled 02/17/22 19:16 Urine Mucus Cancelled 02/17/22 19:16 Urine Other Cancelled 02/17/22 19:16 Urine Trichomonas Cancelled 02/17/22 19:16 Urine Yeast Cancelled 02/17/22 19:16 Ur Yeast w Hyphae Cancelled 02/17/22 19:16 Urine Yeast (Budding) Cancelled 02/17/22 19:16 Urine Sperm Cancelled 02/17/22 19:16 Urine Culture Reflexed Cancelled 02/17/22 19:16 Urine Total Volume Cancelled 02/17/22 19:16 Urine Total Protein Negative (Negative) 02/17/22 19:39 SARS-CoV-2 Rap RNA(RT-PCR) Negative (NEGATIVE) 02/24/22 11:05 Weight: 234 lb Wound Present: No Closed Surgical Incision Present: No Negative Pressure Wound Therapy Present: No Physician Update: Labs reviewed and are stable. Elle with bed mobility, transfers sit to stand with single cane. Walks 250' with Elle. 20 steps with left handrails CGA. Independent with ADLs. Outpatient after discharge. Comment: no skin breakdown. Functional Improvement: Patient has progressed well w/ therapy, and adjusting to the progression of diverse AD. Patient is performing gait tx. w/ hurrycane w/ improved technique and posture, w/ each day. Summary: Patient's care plan and alf goals have been reviewed and revised as necessary. Please see the Rehabilitation Signature page for all necessary signatures.
[2022-02-28 09:46] VITALS: TEMP 96.6
--- NOTE | 2022-03-07 18:05 | R.DS ---
DISCHARGE SUMMARY FACILITY [facility] MR# [id number] NAME MILY SAGASTUME ADDRESS [address] [place] [address] [address] [id number] PHONE DATE OF 1955 AGE 67 SSN# [id number] GENDER Female MARITAL STATUS Single (Never ) ENCOUNTER PHYSICIAN Dr. Rell Hernandez M.D. REFERRING DOCTOR REFERRING FACILITY [facility] DISCHARGE DIAGNOSIS: - Stroke 01 - Right Body (Left Brain) (01.2) CVA. DATE OF ADMISSION 02/17/2022 18:42 (CDT) MEDICATION ALLERGIES: No Known Drug Allergies (NKDA) ENVIRONMENTAL ALLERGIES: - Substance Allergies None Known - Other Allergies None Known DISCHARGE MEDICATIONS: Other- ContinueSee attached MAR (Medication Administration Record). NURSING: - Shower allowing shower - Bladder care per protocol - Skin care per protocol PRECAUTIONS: - Weight Bearing Precaution WBAT right LE - Fall Precaution Bed alarm TABS alarm Wheel chair alarm ACTIVITIES OOB only with supervision THERAPIES: - Dietary and Nutrition Adequate Nutrition Nutritional Education Nutritional Supplements Evaluate and Treat - Occupational Therapy Cognitive Retraining Patient needs Occupational Therapy for a daily minimum of 1.5 hours at least 5 out of 7 days, to impr ove Activities of Daily Living, including: Eating, Grooming, Bathing, Dressing, Toileting, Toilet Tra nsfers, Community Reintegration, Higher functional activities, Adaptive Equipment, Splinting, Househo ld Tasks, and Other activities as determined Visual Perceptual Training Evaluate and Treat - Speech Therapy Cognitive Training Expressive Language Skills Memory Strategies Patient needs Speech Therapy for a daily minimum of 1.5 hours at least 5 out of 7 days, to improve: S wallowing, Cognition, Language Skills, and Compensatory Strategies Receptive Language Skills Speech Intelligibility Training Evaluate and Treat - Physical Therapy Patient needs Physical Therapy for a daily minimum of 1.5 hours at least 5 out of 7 days, to improve: Mobility, Strengthening, Transfers, Stretching, ROM, Endurance, Ability to manage stairs, Gait, and Balance Balance Training Evaluate and Treat Mobility Training Patient/Family Education Safety Awareness Transfer Training Modalities Training Gait Training HISTORY OF PRESENT ILLNESS: Pt. is a 67 yo Right-handed female.On 02/13/2022 Pt. presented to [facility] with sudden onse t of right-side weakness.On 02/13/2022 she was admitted to [facility] with diagnosis CVA.Her impairment category is Stroke 01 - Right Body (Left Brain) (01.2).Pre-morbidly, Pt. was independent/ mod-I in Locomotion, Safety Awareness, Social Cognition, Balance, and Transfers Control; and she had good Sphincter Control, Communication, Self-Care, and Endurance.Currently, she has deficits of Locomo tion, Safety Awareness, Social Cognition, Balance, Transfers Control, Self-Care, Sphincter Control, E ndurance, and Communication.Pt. is now referred to [facility] for acute in-pat ient rehabilitation in order to maximize patient's functional independence in activities of daily zach ing, strength, ROM, and mobility.- Rehab Goal Patient has realistic goal of being discharged at assistance level 7-Ind to reside at Home with Fami ly/Relatives. DIET - LIQUID TEXTURE: On 02/14/2022 Pt was upgraded to Regular Diet - Liquid Texture. DIET - SOLID TEXTURE: On 02/14/2022 Pt was upgraded to Regular Diet - Solid Texture. DIET TYPE: On 02/14/2022 Pt was upgraded to Regular Diet Type. FALL PRECAUTION: On 02/14/2022 the following precautions were added for the patient: Fall Precaution - Wheel chair ala rm, Fall Precaution - TABS alarm, and Fall Precaution - Bed alarm. On 02/21/2022 the following precautions were added for the patient: Fall Precaution - Bed alarm, Fal l Precaution - TABS alarm, and Fall Precaution - Wheel chair alarm. The following precautions were removed for the patient: Fall Precaution - Bed alarm, Fall Precaution - TABS alarm, Fall Precaution - Wheel chair alarm, Fall Precaution - Bed alarm, Fall Precaution - T ABS alarm, and Fall Precaution - Wheel chair alarm. On 02/14/2022 the following precautions were added for the patient: Weight Bearing Precaution - WBAT right LE. On 02/18/2022 the following precautions were added for the patient: Weight Bearing Precaution - WBAT right LE. On 02/21/2022 the following precautions were removed for the patient: Weight Bearing Precaution - WB AT right LE. On 02/24/2022 the following precautions were added for the patient: Weight Bearing Precaution - WBAT right LE. TUBE FEED: On 02/14/2022 Pt was changed to N/A Tube Feed. WEIGHT BEARING PRECAUTION: DISCHARGE PHYSICAL EXAM - Gen Alert and awake Lying in bed No apparent distress Oriented to: person, time, and place - Skin No skin breakdown. No abnormalities - Eyes No abnormalities - ENMT No abnormalities - Neck No abnormalities - CVS RRR - Chest No abnormalities - Resp No wheezing - Abd Soft - GI Non distended Deferred - No abnormalities - Ext No significant edema - MSK 4+/5 weakness in left upper and lower extremity - Neuro 4/5 strength right upper and lower extremities. - Psych Mild depression and anxiety. FUNCTIONAL STATUS: - Self-Care A. Eating 7-Ind B. Grooming 6-Michael C. Bathing 6-Michael D. Dressing - Upper 6-Michael E. Dressing - Lower 6-Michael F. Toileting 6-Michael - Sphincter Control G. Bladder control 6-Michael H. Bowel control 6-Michael - Transfers Control I. Bed/Chair/Wheelchair 6-Michael J. Toilet 6-Michael K. Tub/Shower 6-Michael - Locomotion L. Walk/Wheelchair (B) 6-Michael M. Stairs 5-sup - Communication N. Comprehension (B) 6-Michael O. Expression (B) 6-Michael - Social Cognition P. Social Interaction 6-Michael Q. Problem Solving 6-Michael R. Memory 6-Michael - Endurance Good - Balance Good - Safety Awareness Good QI SCORES: - Self-Care A. Eating 03-Partial/moderate assistance B. Oral hygiene 03-Partial/moderate assistance C. Toileting hygiene 02-Substantial/maximal assistance E. Shower/bathe self 02-Substantial/maximal assistance F. Upper body dressing 03-Partial/moderate assistance G. Lower body dressing 02-Substantial/maximal assistance H. Putting on/taking off footwear 88-Not attempted due to medical condition or safety concerns - Mobility A. Roll left and right 04-Supervision or touching assistance B. Sit to lying 04-Supervision or touching assistance C. Lying to sitting on side of bed 04-Supervision or touching assistance D. Sit to stand 03-Partial/moderate assistance E. Chair/vdw-[id number]-xgarf transfer 03-Partial/moderate assistance F. Toilet transfer 03-Partial/moderate assistance G. Car transfer 88-Not attempted due to medical condition or safety concerns I. Walk 10 feet 03-Partial/moderate assistance J. Walk 50 feet with two turns 88-Not attempted due to medical condition or safety concerns K. Walk 150 feet 88-Not attempted due to medical condition or safety concerns L. Walking 10 feet on uneven surfaces 88-Not attempted due to medical condition or safety concerns M. 1 step (curb) 88-Not attempted due to medical condition or safety concerns N. 4 steps 88-Not attempted due to medical condition or safety concerns O. 12 steps 88-Not attempted due to medical condition or safety concerns P. Picking up object 88-Not attempted due to medical condition or safety concerns R. Wheel 50 feet with two turns 88-Not attempted due to medical condition or safety concerns S. Wheel 150 feet 88-Not attempted due to medical condition or safety concerns - Bladder and Bowel Bladder continence Bowel continence - Endurance Fair - Balance Fair - Safety Awareness Fair DISCHARGE INSTRUCTIONS: - N/A Aspirin 81 mg and Plavix 75 mg daily. Modified barium swallow study 02-20-22 showed laryngeal penetrat ion cleared with thin liquid but not pill. Recommend continue working with speech therapy with occupa tional and speech therapy. DISCHARGE PLAN, FOLLOW UP CARE PROVISIONS: - Estimated Length of Stay (days) 17. - Consensus on plan Discharge plan has been discussed with primary caregiver. Patient/Family is in agreement with the sage n. Primary caregiver is in agreement with the plan. - Patient/Family Goals Return home independently. - Planned Living Setting Upon Discharge Home, to live with Family/Relatives. Transitional Living. SIGNATURE PANEL: (CDT)
== END 2022-02-28 14:00 | disposition home or self-care (01) | DRG 57 ==
LOC: 5TH 18:42
PROVIDERS: ADMIT Psychiatry & Neurology Neurology with Special Qualifications in Child Neurology; ATTEND Psychiatry & Neurology Neurology with Special Qualifications in Child Neurology
DX: I69.351 Hemiplegia and hemiparesis following cerebral infarction affecting right dominant side (principal); E11.9 Type 2 diabetes mellitus without complications; I10 Essential (primary) hypertension; Z85.3 Personal history of malignant neoplasm of breast; Z20.822 Contact with and (suspected) exposure to COVID-19
CPT/HCPCS: 36415; 74230; 80048; 81003; 82040; 82947; 83735; 84134; 85025; 87086; 87088; 92507; 92523; 92526; 92611; 97110; 97112; 97116; 97129; 97130; 97161; 97165; 97530; J1650; J1815; U0003